=== PATIENT | male | born 1935 | race American Indian/Alaskan Native ===

== ENCOUNTER 2017-05-25 13:32 | Inpatient (IN) | payer MEDICARE ==
[2017-05-25 13:45] VITALS: BMI 32.5
[2017-05-25 14:37] LABS: BASO # 0.04 K/mm3 (0.0-2.0); BASO % 0.6 % (0.0-3.0); EOS # 0.5 (0.0-0.7); EOS % 7.9 % (1.5-5.0); GRAN # 4.73 (1.4-6.5); GRAN % 69.4 % (50.0-68.0); HEMATOCRIT 26.2 % (42.0-52.0); LYMPH % 15.1 % (22.0-35.0); MEAN CELL VOLUME 88.5 fl (80.0-105.0); MEAN CORPUSCULAR HEMOGLOBIN 27.7 pg (25.0-35.0); MEAN CORPUSCULAR HGB CONC 31.3 g/dl (31.0-37.0); MEAN PLATELET VOLUME 8.2 fl (7.0-11.0); MONO # 0.5 (0.1-0.6); RED CELL DISTRIBUTION WIDTH 14.4 % (11.5-14.5); WHITE BLOOD COUNT 6.8 10^3/ul (4.5-11.0)
[2017-05-25 15:12] LABS: ALKALINE PHOSPHATASE 65 U/L (38-126); ALT/SGPT 33 U/L (7-56); AST/SGOT 25 U/L (17-59); BILIRUBIN,TOTAL 0.5 mg/dL (0.2-1.3); BLOOD UREA NITROGEN 18 mg/dL (7-21); CALCIUM 9.1 mg/dL (8.4-10.5); CARBON DIOXIDE 24 mmol/L (21-33); CHLORIDE 107 mmol/L (98-107); GFR AFRICAN-AMERICAN > 60; GLUCOSE,RANDOM 129 mg/dL (70-110); MAGNESIUM 2.3 mg/dL (1.7-2.2); POTASSIUM 3.7 mmol/L (3.6-5.0); SODIUM 142 mmol/L (132-148); TOTAL PROTEIN 7.6 g/dL (5.8-8.3)
--- NOTE | 2017-05-25 15:14 | CT ---
PROCEDURE: CT HEAD WITHOUT CONTRAST. HISTORY: r/o ICH COMPARISON: 01/21/2015 TECHNIQUE: Axial computed tomography images were obtained through the head/brain without intravenous contrast. Radiation dose: Total exam DLP = 825 mGy-cm. This CT exam was performed using one or more of the following dose reduction techniques: Automated exposure control, adjustment of the mA and/or kV according to patient size, and/or use of iterative reconstruction technique. FINDINGS: HEMORRHAGE: No intracranial hemorrhage. BRAIN: No mass effect or edema. Chronic microvascular changes are seen in the periventricular white matter. There is a more well-defined area of chronic encephalomalacia in left parietal white matter. VENTRICLES: Unremarkable. No hydrocephalus. CALVARIUM: Unremarkable. PARANASAL SINUSES: Unremarkable as visualized. No significant inflammatory changes. MASTOID AIR CELLS: Unremarkable as visualized. No inflammatory changes. OTHER FINDINGS: None. IMPRESSION: Chronic encephalomalacia. No acute findings
[2017-05-25 15:21] LABS: TROPONIN I < 0.01 ng/mL
--- NOTE | 2017-05-25 15:35 | RAD ---
HISTORY: r/o infiltrate COMPARISON: 01/21/2015 FINDINGS: LUNGS: No active pulmonary disease. PLEURA: No significant pleural effusion identified, no pneumothorax apparent. CARDIOVASCULAR: Normal. OSSEOUS STRUCTURES: No significant abnormalities. VISUALIZED UPPER ABDOMEN: Normal. OTHER FINDINGS: None. IMPRESSION: No active disease.
--- NOTE | 2017-05-25 16:29 | ED PDOC ---
Arrival/HPI - General Chief Complaint: Weakness/Neurological Deficit Time Seen by Provider: 05/25/17 13:41 Historian: Patient - History of Present Illness Narrative History of Present Illness (Text): 05/25/17 13:46 A 81 year old male, whose past medical history includes advanced Alzheimer's/ dementia, is accompanied by son and , and presents to the emergency department complaining of near syncopal episode. Per , was walking home and suddenly became weak and nearly passed out. Per family, patient has been eating regularly. Patient denies any pain, LOC, fever, cough, dysuria, hematuria, bloody stool, or any other complaints. Also, patient has not had cardiac workup in approximately 2 years. No PMD Past Medical History - Provider Review Nursing Documentation Reviewed: Yes - Infectious Disease Hx of Infectious Diseases: None - Tetanus Immunization Tetanus Immunization: Unknown - Cardiac Hx Cardiac Disorders: Yes Hx Hypertension: Yes - Pulmonary Hx Respiratory Disorders: No - Neurological Hx Neurological Disorder: Yes Hx Alzheimer's Disease: Yes Hx Dementia: Yes - HEENT Hx HEENT Disorder: No - Renal Hx Renal Disorder: No - Endocrine/Metabolic Hx Endocrine Disorders: No - Hematological/Oncological Hx Blood Disorders: No - Integumentary Hx Dermatological Disorder: No - Musculoskeletal/Rheumatological Hx Musculoskeletal Disorders: No Hx Falls: No - Gastrointestinal Hx Gastrointestinal Disorders: No - Genitourinary/Gynecological Hx Genitourinary Disorders: No - Psychiatric Hx Psychophysiologic Disorder: Yes Hx Depression: Yes Hx Substance Use: No - Past Surgical History Past Surgical History: Unable to Obtain - Surgical History Hx Orthopedic Surgery: Yes (rt knee) - Anesthesia Hx Anesthesia: Yes Hx Anesthesia Reactions: No Hx Malignant Hyperthermia: No - Suicidal Assessment Feels Threatened In Home Enviroment: No Family/Social History - Physician Review Nursing Documentation Reviewed: Yes Family/Social History: No Known Family HX Smoking Status: Never Smoked Hx Alcohol Use: No Hx Substance Use: No Hx Substance Use Treatment: No Allergies/Home Meds Allergies/Adverse Reactions: Allergies No Known Allergies Allergy (Verified 05/09/16 11:28) Home Medications: Home Meds Medication Instructions Recorded Confirmed Donepezil [Aricept] 10 mg PO HS 06/14/13 05/25/17 Primidone 50 mg PO BID 06/14/13 05/25/17 Furosemide [Lasix] 1 tab PO DAILY 05/25/17 05/25/17 Lisinopril [Zestril] 1 tab PO DAILY 05/25/17 05/25/17 amLODIPine [Norvasc] 1 tab PO DAILY 05/25/17 05/25/17 traZODone [Desyrel] 1 tab PO HS 05/25/17 05/25/17 Review of Systems - Physician Review All systems were reviewed & negative as marked: Yes - Review of Systems Constitutional: absent: Fevers, Other (patient denies of any pain) Respiratory: absent: Cough Cardiovascular: absent: Syncope (near-syncopal episode) Gastrointestinal: absent: Stool Changes (no bloody stool) Genitourinary Male: absent: Dysuria, Hematuria Neurological: absent: Other (no LOC) Physical Exam Vital Signs Reviewed: Yes Vital Signs Temp Pulse Resp BP Pulse Ox 05/25/17 21:06 67 18 122/54 L 98 05/25/17 19:55 66 18 105/51 L 100 05/25/17 16:59 61 18 132/62 05/25/17 16:49 61 18 132/62 98 05/25/17 15:07 64 18 125/59 L 100 05/25/17 13:46 97.8 F 67 18 127/56 L 98 Temperature: Afebrile Blood Pressure: Normal Pulse: Regular Respiratory Rate: Normal Appearance: Positive for: Well-Appearing Pain Distress: None Mental Status: Positive for: Alert and Oriented X 3 Finger Stick Blood Glucose: 141 - Systems Exam Head: Present: Atraumatic, Normocephalic Pupils: Present: PERRL Extroacular Muscles: Present: EOMI Conjunctiva: Present: Normal Mouth: Present: Moist Mucous Membranes Neck: Present: Normal Range of Motion Respiratory/Chest: Present: Clear to Auscultation, Good Air Exchange. No: Respiratory Distress, Accessory Muscle Use Cardiovascular: Present: Regular Rate and Rhythm, Normal S1, S2. No: Murmurs Abdomen: Present: Normal Bowel Sounds. No: Tenderness, Distention, Peritoneal Signs Back: Present: Normal Inspection Upper Extremity: Present: Normal Inspection. No: Cyanosis, Edema Lower Extremity: Present: Normal Inspection. No: Edema Neurological: Present: GCS=15, CN II-XII Intact, Speech Normal Skin: Present: Warm, Dry, Normal Color. No: Rashes Psychiatric: Present: Alert, Oriented x 3, Normal Insight, Normal Concentration Medical Decision Making ED Course and Treatment: 05/25/17 13:51 Impression: 81 year old male with near-syncopal episode. No acute findings on physical exam. Plan: -- EKG -- Head CT -- Chest X-ray -- Labs -- Urine Culture -- Urinalysis -- Reassess and disposition Prior Visits: Notes and results from previous visits were reviewed. Patient was last seen in the emergency department on 05/09/2016 for diarrhea. Patient was d/c home. Progress Notes: EKG: Ordered, reviewed, and independently interpreted the EKG. Rate : 64 BPM Rhythm : NSR Interpretation : No ST-segment elevations or depressions, no T-wave inversions, normal intervals. Comparison : No previous EKG for comparison. 05/25/2017 15:[address] IMPRESSION: Chronic encephalomalacia. No acute findings. Dictator: José Miguel Woodruff MD 05/25/2017 15:33 Chest X-ray IMPRESSION: No active disease. Dictator: José Miguel Woodruff MD - Lab Interpretations Lab Results: 05/25/17 14:20 05/25/17 14:20 Lab Results 05/25/17 14:20: Sodium 142, Potassium 3.7, Chloride 107, Carbon Dioxide 24, Anion Gap 14, BUN 18, Creatinine 1.1, Est GFR ( Amer) > 60, Est GFR (Non- Af Amer) > 60, Random Glucose 129 H, Calcium 9.1, Magnesium 2.3 H, Total Bilirubin 0.5, AST 25, ALT 33, Alkaline Phosphatase 65, Lactate Dehydrogenase 615, Total Creatine Kinase 151, Troponin I < 0.01, NT-Pro-B Natriuret Pep 245, Total Protein 7.6, Albumin 3.8, Globulin 3.7, Albumin/Globulin Ratio 1.0 L 05/25/17 14:20: WBC 6.8 D, RBC 2.96 L, Hgb 8.2 L, Hct 26.2 L, MCV 88.5, MCH 27.7, MCHC 31.3, RDW 14.4, Plt Count 370, MPV 8.2, Gran % 69.4 H, Lymph % (Auto ) 15.1 L, Early % (Auto) 7.0 H, Eos % (Auto) 7.9 H, Baso % (Auto) 0.6, Gran # 4.73, Lymph # 1.0 L, Early # 0.5, Eos # 0.5, Baso # 0.04 I have reviewed the lab results: Yes - RAD Interpretation Radiology Orders: 05/25/17 13:51 CHEST PORTABLE [RAD] Stat 05/25/17 13:52 HEAD W/O CONTRAST [CT] Stat - Medication Orders Current Medication Orders: Amlodipine Besylate (Norvasc) 5 mg PO DAILY [facility] Donepezil HCl (Aricept) 10 mg PO HS [facility] Enoxaparin Sodium (Lovenox) 30 mg SC DAILY [facility] PRN Reason: Protocol Furosemide (Lasix) 20 mg PO DAILY [facility] Lisinopril (Zestril) 40 mg PO DAILY [facility] Primidone (Mysoline) 50 mg PO BID [facility] Trazodone HCl (Desyrel) 50 mg PO HS [facility] - Scribe Statement The provider has reviewed the documentation as recorded by the Rica Trevino Provider Scribe Attestation: All medical record entries made by the Srinivasaibdimple were at my direction and personally dictated by me. I have reviewed the chart and agree that the record accurately reflects my personal performance of the history, physical exam, medical decision making, and the department course for this patient. I have also personally directed, reviewed, and agree with the discharge instructions and disposition. Disposition/Present on Arrival - Present on Arrival Any Indicators Present on Arrival: No History of DVT/PE: No History of Uncontrolled Diabetes: No Urinary Catheter: No History of Decub. Ulcer: No History Surgical Site Infection Following: None - Disposition Have Diagnosis and Disposition been Completed?: Yes Diagnosis: Near syncope, Anemia Disposition: HOSPITALIZED Disposition Time: 15:20 Patient Plan: Admission, Telemetry Condition: FAIR
[2017-05-25 21:26] LABS: IRON 14 ug/dL (45-180)
[2017-05-26 02:05] LABS: PH,URINE 6.5 (4.7-8.0); URINE BILIRUBIN NEGATIVE (NEGATIVE); URINE BLOOD NEGATIVE (NEGATIVE); URINE GLUCOSE (UA) NEGATIVE (NEGATIVE); URINE KETONE NEGATIVE (NEGATIVE); URINE LEUKOCYTE ESTERASE NEGATIVE Leu/uL (NEGATIVE); URINE PROTEIN NEGATIVE mg/dL (<30 mg/dL); URINE UROBILINOGEN 0.2 E.U./dL (<1 E.U./dL)
[2017-05-26 02:12] LABS: URINE APPEARANCE CLEAR (CLEAR); URINE COLOR YELLOW (YELLOW)
[2017-05-26 05:18] LABS: MEAN CELL VOLUME 88.6 fl (80.0-105.0); MEAN CORPUSCULAR HEMOGLOBIN 27.7 pg (25.0-35.0); MEAN CORPUSCULAR HGB CONC 31.2 g/dl (31.0-37.0); MEAN PLATELET VOLUME 8.4 fl (7.0-11.0); RED CELL DISTRIBUTION WIDTH 14.6 % (11.5-14.5); WHITE BLOOD COUNT 8.4 10^3/ul (4.5-11.0)
[2017-05-26 05:36] LABS: HEMATOCRIT 23.4 % (42.0-52.0)
[2017-05-26 05:47] LABS: BLOOD UREA NITROGEN 20 mg/dL (7-21); CALCIUM 8.7 mg/dL (8.4-10.5); CARBON DIOXIDE 26 mmol/L (21-33); CHLORIDE 110 mmol/L (98-107); GFR AFRICAN-AMERICAN > 60; GLUCOSE,RANDOM 88 mg/dL (70-110); POTASSIUM 3.7 mmol/L (3.6-5.0); SODIUM 143 mmol/L (132-148)
--- NOTE | 2017-05-26 09:52 | CARD ---
APPROVED REPORT EKG Measurement Heart [id number] <Conclusion> Normal sinus rhythm Moderate voltage criteria for LVH, may be normal variant No change
[2017-05-26] MEDS ORDERED: Enoxaparin 30 mg Syringe SC SCH (10:00)
--- NOTE | 2017-05-26 13:08 | CP.PCM.CON ---
<Lenora Ventura - Last Filed: 05/26/17 18:04> History of Present Illness - History of Present Illness History of Present Illness: PGY-2 Neurology consult note for Dr. Nur's service 81 yo male with PMH of alzheimer;s dementia presented to ED for near syncopal episode. Patient has h/o dementia, he is not oriented, unable to answer questions. History taken from ED note. Patient was brought in by family after near syncopal episode. Patient was walking when suddenly he became weak and nearly passed out. Patient denies LOC, fever, chills, cough, chest pain, headache, dizziness, sob. PMH: alzheimer's, HTN, depression PSH: orthopedic surgery of right knee allergy: NKDA home meds: trazodone, lisinopril, lasix, aricept, norvasc Review of Systems - Review of Systems Systems not reviewed;Unavailable: Dementia All systems: reviewed and no additional remarkable complaints except (as states in HPI) Past Patient History - Infectious Disease Hx of Infectious Diseases: None - Tetanus Immunizations Tetanus Immunization: Unknown - Past Social History Smoking Status: Never Smoked - CARDIAC Hx Cardiac Disorders: Yes Hx Hypertension: Yes - PULMONARY Hx Respiratory Disorders: No - NEUROLOGICAL Hx Neurological Disorder: Yes Hx Alzheimer's Disease: Yes Hx Dementia: Yes - HEENT Hx HEENT Problems: No - RENAL Hx Chronic Kidney Disease: No - ENDOCRINE/METABOLIC Hx Endocrine Disorders: No - HEMATOLOGICAL/ONCOLOGICAL Hx Blood Disorders: No - INTEGUMENTARY Hx Dermatological Problems: No - MUSCULOSKELETAL/RHEUMATOLOGICAL Hx Musculoskeletal Disorders: No Hx Falls: No - GASTROINTESTINAL Hx Gastrointestinal Disorders: No - GENITOURINARY/GYNECOLOGICAL Hx Genitourinary Disorders: No - PSYCHIATRIC Hx Psychophysiologic Disorder: Yes Hx Depression: Yes Hx Substance Use: No - SURGICAL HISTORY Hx Orthopedic Surgery: Yes (rt knee) - ANESTHESIA Hx Anesthesia: Yes Hx Anesthesia Reactions: No Hx Malignant Hyperthermia: No Meds Allergies/Adverse Reactions: Allergies Allergy/AdvReac Type Severity Reaction Status Date / Time No Known Allergies Allergy Verified 05/09/16 11:28 - Medications Medications: Current Medications Amlodipine Besylate (Norvasc) 5 mg PO DAILY HIEU Donepezil HCl (Aricept) 10 mg PO HS [facility]IEU Last Admin: 05/26/17 00:33 Dose: 10 mg Lisinopril (Zestril) 40 mg PO DAILY [facility]IEU Primidone (Mysoline) 50 mg PO BID [facility]U Trazodone HCl (Desyrel) 50 mg PO HS [facility] Last Admin: 05/26/17 00:33 Dose: 50 mg Physical Exam - Constitutional Appears: No Acute Distress - Head Exam Head Exam: ATRAUMATIC, NORMAL INSPECTION, NORMOCEPHALIC - Eye Exam Eye Exam: EOMI, Normal appearance - ENT Exam ENT Exam: Mucous Membranes Moist - Respiratory Exam Respiratory Exam: Clear to Auscultation Bilateral, NORMAL BREATHING PATTERN. absent: Rhonchi, Wheezes, Respiratory Distress - Cardiovascular Exam Cardiovascular Exam: REGULAR RHYTHM, +S1, +S2. absent: Tachycardia, Systolic Murmur - GI/Abdominal Exam GI & Abdominal Exam: Normal Bowel Sounds, Soft. absent: Tenderness - Extremities Exam Extremities exam: Positive for: normal inspection. Negative for: pedal edema, tenderness - Neurological Exam Neurological exam: Alert, CN II-XII Intact - Expanded Neurological Exam Expanded Neurological exam: Expressive Aphasia Patient oriented to: person Speech: Fluid Speech Cranial nerves: EOM's Intact: Normal, Tongue Deviation: Normal Cerebellar Function: Finger to Nose: Normal Neuro motor strength exam: Left Upper Extremity: 5, Right Upper Extremity: 5, Left Lower Extremity: 5, Right Lower Extremity: 5 - Skin Skin Exam: Dry, Intact, Normal Color, Warm Results - Vital Signs Recent Vital Signs: Last Vital Signs Temp 98.4 F 05/26/17 06:00 Pulse 71 05/26/17 12:23 Resp 18 05/26/17 12:23 BP 133/61 05/26/17 12:23 Pulse Ox 100 05/26/17 12:23 - Labs Result Diagrams: 05/26/17 05:00 05/26/17 05:00 Labs: Laboratory Results - last 24 hr 05/25/17 05/25/17 05/25/17 17:00 20:45 20:45 WBC RBC Hgb Hct MCV MCH MCHC RDW Plt Count MPV Sodium Potassium Chloride Carbon Dioxide Anion Gap BUN Creatinine Est GFR ( Amer) Est GFR (Non-Af Amer) POC Glucose (mg/dL) Random Glucose Hemoglobin A1c Calcium Iron 14 L TIBC 415 % Saturation 3 L Triglycerides 75 Cholesterol 147 LDL Cholesterol Direct 76 HDL Cholesterol 52 TSH 3rd Generation Urine Color Urine Appearance Urine pH Ur Specific [place] Urine Protein Urine Glucose (UA) Urine Ketones Urine Blood Urine Nitrate Urine Bilirubin Urine Urobilinogen Ur Leukocyte Esterase Blood Type O NEGATIVE Blood Type Confirm Antibody Screen Negative Crossmatch See Detail BBK History Checked No verified bt 05/25/17 05/26/17 05/26/17 20:45 00:23 01:56 WBC RBC Hgb Hct MCV MCH MCHC RDW Plt Count MPV Sodium Potassium Chloride Carbon Dioxide Anion Gap BUN Creatinine Est GFR ( Amer) Est GFR (Non-Af Amer) POC Glucose (mg/dL) Random Glucose Hemoglobin A1c 4.8 Calcium Iron TIBC % Saturation Triglycerides Cholesterol LDL Cholesterol Direct HDL Cholesterol TSH 3rd Generation Urine Color Yellow Urine Appearance Clear Urine pH 6.5 Ur Specific [place] 1.015 Urine Protein Negative Urine Glucose (UA) Negative Urine Ketones Negative Urine Blood Negative Urine Nitrate Negative Urine Bilirubin Negative Urine Urobilinogen 0.2 Ur Leukocyte Esterase Negative Blood Type Blood Type Confirm O NEGATIVE Antibody Screen Crossmatch BBK History Checked 05/26/17 05/26/17 05/26/17 05:00 05:00 10:07 WBC 8.4 D RBC 2.64 L Hgb 7.3 L Hct 23.4 L MCV 88.6 MCH 27.7 MCHC 31.2 RDW 14.6 H Plt Count 393 MPV 8.4 Sodium 143 Potassium 3.7 Chloride 110 H Carbon Dioxide 26 Anion Gap 10 BUN 20 Creatinine 1.1 Est GFR ( Amer) > 60 Est GFR (Non-Af Amer) > 60 POC Glucose (mg/dL) Random Glucose 88 Hemoglobin A1c Calcium 8.7 Iron TIBC % Saturation Triglycerides Cholesterol LDL Cholesterol Direct HDL Cholesterol TSH 3rd Generation 2.83 Urine Color Urine Appearance Urine pH Ur Specific [place] Urine Protein Urine Glucose (UA) Urine Ketones Urine Blood Urine Nitrate Urine Bilirubin Urine Urobilinogen Ur Leukocyte Esterase Blood Type Blood Type Confirm Antibody Screen Crossmatch BBK History Checked 05/26/17 10:10 WBC RBC Hgb Hct MCV MCH MCHC RDW Plt Count MPV Sodium Potassium Chloride Carbon Dioxide Anion Gap BUN Creatinine Est GFR ( Amer) Est GFR (Non-Af Amer) POC Glucose (mg/dL) 101 Random Glucose Hemoglobin A1c Calcium Iron TIBC % Saturation Triglycerides Cholesterol LDL Cholesterol Direct HDL Cholesterol TSH 3rd Generation Urine Color Urine Appearance Urine pH Ur Specific [place] Urine Protein Urine Glucose (UA) Urine Ketones Urine Blood Urine Nitrate Urine Bilirubin Urine Urobilinogen Ur Leukocyte Esterase Blood Type Blood Type Confirm Antibody Screen Crossmatch BBK History Checked Assessment & Plan - Assessment and Plan (Free Text) Assessment: 81 yo male with PMH of alzheimer;s dementia presented to ED for near syncopal episode most likely due to symptomatic anemia and general deconditioning 1. near syncope, weakness 2. anemia, severe 3. h/o dementia - head CT negative for acute changes, chronic encephalomalacia - anemia work up pending, including folate, lipid panel, vitamin B12 - carotid and vertebral US pending - EEG pending - orthostatics - PT/OT - consider subacute rehab case reviewed and discussed with attending <Santos Nur - Last Filed: 05/26/17 22:03> Meds - Medications Medications: Current Medications Amlodipine Besylate (Norvasc) 5 mg PO DAILY [facility] Last Admin: 05/26/17 10:21 Dose: 5 mg Donepezil HCl (Aricept) 10 mg PO HS [facility] Last Admin: 05/26/17 00:33 Dose: 10 mg Lisinopril (Zestril) 40 mg PO DAILY [facility] Last Admin: 05/26/17 10:21 Dose: 40 mg Primidone (Mysoline) 50 mg PO BID [facility] Last Admin: 05/26/17 18:32 Dose: 50 mg Trazodone HCl (Desyrel) 50 mg PO HS [facility] Last Admin: 05/26/17 00:33 Dose: 50 mg Results - Vital Signs Recent Vital Signs: Last Vital Signs Temp 98.1 F 05/26/17 21:37 Pulse 75 05/26/17 21:37 Resp 18 05/26/17 21:37 BP 145/78 05/26/17 21:37 Pulse Ox 96 05/26/17 18:00 - Labs Result Diagrams: 05/26/17 05:00 05/26/17 05:00 Labs: Laboratory Results - last 24 hr 05/25/17 05/25/17 05/25/17 17:00 20:45 20:45 WBC RBC Hgb Hct MCV MCH MCHC RDW Plt Count MPV Sodium Potassium Chloride Carbon Dioxide Anion Gap BUN Creatinine Est GFR ( Amer) Est GFR (Non-Af Amer) POC Glucose (mg/dL) Random Glucose Hemoglobin A1c 4.8 Calcium Vitamin B12 556 Folate 18.7 TSH 3rd Generation Urine Color Urine Appearance Urine pH Ur Specific [place] Urine Protein Urine Glucose (UA) Urine Ketones Urine Blood Urine Nitrate Urine Bilirubin Urine Urobilinogen Ur Leukocyte Esterase Blood Type O NEGATIVE Blood Type Confirm Antibody Screen Negative Crossmatch See Detail BBK History Checked No verified bt 05/26/17 05/26/17 05/26/17 00:23 01:56 05:00 WBC 8.4 D RBC 2.64 L Hgb 7.3 L Hct 23.4 L MCV 88.6 MCH 27.7 MCHC 31.2 RDW 14.6 H Plt Count 393 MPV 8.4 Sodium Potassium Chloride Carbon Dioxide Anion Gap BUN Creatinine Est GFR ( Amer) Est GFR (Non-Af Amer) POC Glucose (mg/dL) Random Glucose Hemoglobin A1c Calcium Vitamin B12 Folate TSH 3rd Generation Urine Color Yellow Urine Appearance Clear Urine pH 6.5 Ur Specific [place] 1.015 Urine Protein Negative Urine Glucose (UA) Negative Urine Ketones Negative Urine Blood Negative Urine Nitrate Negative Urine Bilirubin Negative Urine Urobilinogen 0.2 Ur Leukocyte Esterase Negative Blood Type Blood Type Confirm O NEGATIVE Antibody Screen Crossmatch BBK History Checked 05/26/17 05/26/17 05/26/17 05:00 10:07 10:10 WBC RBC Hgb Hct MCV MCH MCHC RDW Plt Count MPV Sodium 143 Potassium 3.7 Chloride 110 H Carbon Dioxide 26 Anion Gap 10 BUN 20 Creatinine 1.1 Est GFR ( Amer) > 60 Est GFR (Non-Af Amer) > 60 POC Glucose (mg/dL) 101 Random Glucose 88 Hemoglobin A1c Calcium 8.7 Vitamin B12 Folate TSH 3rd Generation 2.83 Urine Color Urine Appearance Urine pH Ur Specific [place] Urine Protein Urine Glucose (UA) Urine Ketones Urine Blood Urine Nitrate Urine Bilirubin Urine Urobilinogen Ur Leukocyte Esterase Blood Type Blood Type Confirm Antibody Screen Crossmatch BBK History Checked Attending/Attestation - Attestation I have personally seen and examined this patient.: Yes I have fully participated in the care of the patient.: Yes I have reviewed all pertinent clinical information: Yes
[2017-05-26 13:10] LABS: FOLATE 18.7 ng/mL
--- NOTE | 2017-05-26 18:55 | HP ---
DATE: SUBJECTIVE: An 81-year-old black male with a long history of dementia and hypertension. The patient was with his family at home when he had a weak spell, able to sit on the couch without loss of consciousness, but had a staring episode post falling into the couch. EMS was called. The patient was taken to the emergency room at [facility]. Laboratory data is found a hemoglobin of 8.2, which dropped to 7.3 the following day. The patient is type and cross and is being transfused and admitted. The patient's family denies any episodes of seizure activity. Denies any history of passing out in the past. Denies any shortness of breath, nausea, vomiting, palpitations, or chest pain. Denies any loss of strength in the upper and lower extremities that was focal. The following morning, the patient was seen in the ER. He is awake and alert, but oriented only to person, not to time or place. The patient has no focal neurological findings. He is moving all the extremities and following commands. He has no facial asymmetry and he has normal strength in the upper and lower extremities. Babinski's are downgoing bilaterally. His sclerae are clear. Conjunctivae are pale. The patient has a low MCV and low iron levels. The patient has no history of any GI bleeding in the past. The patient's plan will be to check stool for occult blood, GI consult, transfuse, and continue evaluation for near syncopal episode. Kenny Joseph MD
--- NOTE | 2017-05-26 22:01 | CON ---
DATE: HISTORY OF PRESENT ILLNESS: This is an 81-year-old male with past medical history of dementia and came to the hospital because the patient had a near syncopal episode. As per , the patient suddenly became weak, nearly passed out, and denies any loss of consciousness. No tongue bite. No urinary incontinence. HOME MEDICATIONS: Lasix, Zestril, Norvasc, Desyrel and Aricept. REVIEW OF SYSTEMS: A 10-point review of system was negative. PHYSICAL EXAMINATION: VITAL SIGNS: Blood pressure 127/56. HEENT: Normocephalic, atraumatic. NECK: Supple. NEUROLOGIC: Alert, awake, and oriented x3. No aphasia. Cranial nerves II to XII were tested. Pupils reactive. EOM intact. Visual robin full. No facial asymmetry. Tongue midline. Motor examination, moves all the extremities equally. Tone normal. Deep tendon reflexes 1+. Both plantars downgoing. Sensory appears intact. Cerebellar and gait deferred. IMPRESSION: An 81-year-old male with past medical history of dementia, had near syncopal episode, came to hospital. CAT scan of the head was done, which was reported negative. LABORATORY DATA: WBC 6.8, hemoglobin 8.2, hematocrit 26.2, platelet 370. Sodium 142, potassium 3.7, chloride 107, CO2 of 24, glucose 129, BUN 18, creatinine 1.1. PLAN: The patient also had anemia and workup in progress. We will follow up. We will do EEG. Royal Nur MD
--- NOTE | 2017-05-27 03:21 | CON ---
DATE: 05/26/2017 HISTORY OF PRESENT ILLNESS: This patient was seen and evaluated earlier today. Discussed with the nursing staff. This is an 81-year-old patient with past medical history of Alzheimer dementia, was brought to the emergency room for complaint of near syncopal episode. The patient had this episode acutely. The patient was found to have very low hemoglobin of 7.3. GI consult was requested to evaluate. The patient is a poor historian. PAST MEDICAL HISTORY: Other past medical history is significant for dementia, hypertension, dyslipidemia. This patient's history has been limited. PAST SURGICAL HISTORY: Significant for right knee surgery. ALLERGIES: NO KNOWN DRUG ALLERGIES. SOCIAL HISTORY: No smoking or alcohol. REVIEW OF SYSTEMS: Positive as above, limited. PHYSICAL EXAMINATION: GENERAL: The patient is lying on the bed, not in acute distress. VITAL SIGNS: Temperature is 98.1, pulse 75, blood pressure is 145/78, respirations 18. HEENT: Atraumatic, anicteric. NECK: Supple. HEART: S1 and S2 heard. LUNGS: Bilateral air entry present. ABDOMEN: Soft. There is no mass, no tenderness. EXTREMITIES: No edema. No cyanosis. NEUROLOGIC: The patient is alert, not oriented. LABORATORY DATA: Hemoglobin 11.3, hematocrit 23.4. WBC is 6.4, platelets 393. IMPRESSION: 1. This 81-year-old patient is admitted with near syncopal episode found to have a very low hemoglobin of 7.93. No witnessed bleeding. Other past medical history is significant. 2. Rule out iron deficiency anemia. The patient's MCV is normal. B12 level is trending. I would request serum. 3. Other comorbidities include hypertension, dementia, cardiac dysrhythmia, anemia. Thank you very much for allowing us to participate in the care of the patient. Continue to closely follow up his care and suggest further management based on the clinical course. Pamella Oneill MD
[2017-05-27 10:41] LABS: BASO # 0.05 K/mm3 (0.0-2.0); BASO % 0.5 % (0.0-3.0); EOS # 0.6 (0.0-0.7); EOS % 5.8 % (1.5-5.0); GRAN # 6.64 (1.4-6.5); GRAN % 70.3 % (50.0-68.0); LYMPH # 1.3 (1.2-3.4); MEAN CELL VOLUME 87.5 fl (80.0-105.0); MEAN CORPUSCULAR HEMOGLOBIN 27.8 pg (25.0-35.0); MEAN CORPUSCULAR HGB CONC 31.8 g/dl (31.0-37.0); MEAN PLATELET VOLUME 8.1 fl (7.0-11.0); MONO # 0.9 (0.1-0.6); MONO % 9.4 % (1.0-6.0); RED CELL DISTRIBUTION WIDTH 14.7 % (11.5-14.5); WHITE BLOOD COUNT 9.5 10^3/ul (4.5-11.0)
--- NOTE | 2017-05-27 13:41 | CP.PCM.PN ---
<Lenora Ventura - Last Filed: 05/27/17 19:48> Subjective - Date & Time of Evaluation Date of Evaluation: 05/27/17 Time of Evaluation: 09:00 - Subjective Subjective: PGY-2 Neurology progress note for Dr. Nur service Patient seen and examined at bedside. No acute distress. Patient is sleeping comfortably. Does not report fever, chills, chest pain, headache, dizziness, focal neurological weakness. Objective - Vital Signs/Intake and Output Vital Signs (last 24 hours): Temp Pulse Resp BP Pulse Ox 99.1 F 69 20 145/65 96 05/27/17 06:00 05/27/17 10:55 05/27/17 06:00 05/27/17 10:55 05/27/17 06:00 Intake and Output: 05/27/17 05/27/17 06:59 18:59 Intake Total 445 Balance 445 - Medications Medications: Current Medications Amlodipine Besylate (Norvasc) 5 mg PO DAILY [facility] Last Admin: 05/27/17 10:55 Dose: 5 mg Donepezil HCl (Aricept) [address] [facility] Last Admin: 05/26/17 23:04 Dose: 10 mg Lisinopril (Zestril) 40 mg PO DAILY [facility] Last Admin: 05/27/17 10:55 Dose: 40 mg Pantoprazole Sodium (Protonix Inj) 40 mg IVP DAILY [facility] Last Admin: 05/27/17 11:36 Dose: 40 mg Primidone (Mysoline) 50 mg PO BID [facility] Last Admin: 05/27/17 10:55 Dose: 50 mg Trazodone HCl (Desyrel) [address] [facility] Last Admin: 05/26/17 23:04 Dose: 50 mg - Labs Labs: 05/27/17 10:30 05/26/17 05:00 - Constitutional Appears: Well, No Acute Distress - Head Exam Head Exam: ATRAUMATIC, NORMAL INSPECTION, NORMOCEPHALIC - Eye Exam Eye Exam: EOMI, Normal appearance - Respiratory Exam Respiratory Exam: Clear to Ausculation Bilateral, NORMAL BREATHING PATTERN. absent: Respiratory Distress - Cardiovascular Exam Cardiovascular Exam: REGULAR RHYTHM - Neurological Exam Neurological Exam: Alert, Awake, CN II-XII Intact. absent: Oriented x3 Neuro motor strength exam: Left Upper Extremity: 5, Right Upper Extremity: 5, Left Lower Extremity: 5, Right Lower Extremity: 5 - Skin Skin Exam: Dry, Intact, Normal Color, Warm Assessment and Plan - Assessment and Plan (Free Text) Assessment: 81 yo male with PMH of alzheimer's dementia presented to ED for near syncopal episode most likely due to symptomatic anemia and general deconditioning 1. near syncope, weakness 2. anemia, severe 3. h/o dementia - head CT negative for acute changes, chronic encephalomalacia - Hgb improved, anemia work up pending, iron levels low, B12 and folate within normal limits, pending GI work up - carotid and vertebral US taken, official read pending - EEG taken, showed mild cerebral dysfunction, no signs of seizure activity - orthostatics - PT/OT - consider subacute rehab Thank you for the consult, please reconsult if needed case reviewed and discussed with attending <Santos Nur - Last Filed: 05/28/17 10:35> Objective - Vital Signs/Intake and Output Vital Signs (last 24 hours): Temp Pulse Resp BP Pulse Ox 98.4 F 64 18 137/59 L 93 L 05/28/17 00:01 05/28/17 09:56 05/28/17 05:36 05/28/17 09:56 05/28/17 05:36 Intake and Output: 05/28/17 05/28/17 06:59 18:59 Intake Total 0 Output Total 1 Balance -1 - Medications Medications: Current Medications Amlodipine Besylate (Norvasc) 5 mg PO DAILY [facility] Last Admin: 05/28/17 09:56 Dose: 5 mg Donepezil HCl (Aricept) 10 mg PO HS [facility] Last Admin: 05/27/17 22:00 Dose: 10 mg Lisinopril (Zestril) 40 mg PO DAILY [facility] Last Admin: 05/28/17 09:56 Dose: 40 mg Pantoprazole Sodium (Protonix Inj) 40 mg IVP DAILY [facility] Last Admin: 05/28/17 10:04 Dose: Not Given Primidone (Mysoline) 50 mg PO BID [facility] Last Admin: 05/28/17 09:56 Dose: 50 mg Trazodone HCl (Desyrel) 50 mg PO HS [facility] Last Admin: 05/27/17 22:00 Dose: 50 mg - Labs Labs: 05/27/17 10:30 05/26/17 05:00 Attending/Attestation - Attestation I have personally seen and examined this patient.: Yes I have fully participated in the care of the patient.: Yes I have reviewed all pertinent clinical information, including history, physical exam and plan: Yes
[2017-05-27] MEDS ORDERED: Etomidate 20 mg/10ml Inj IV ONE (15:11)
[2017-05-27] MEDS ORDERED: Sodium Chloride 0.9% 1,000 ML IV SCH (15:30)
--- NOTE | 2017-05-27 18:57 | US ---
PROCEDURE: Bilateral carotid artery duplex ultrasound HISTORY: Carotid stenosis TIA PHYSICIAN(S): Goyo Jesus MD. TECHNIQUE: Duplex sonography and color-flow Doppler were used to evaluate the carotid bifurcations and limited segments of the vertebral arteries bilaterally. FINDINGS: There is mild to moderate smooth echogenic plaque noted at the carotid bifurcations bilaterally. The peak systolic velocity in the proximal right internal carotid artery is 104 cm/sec. This corresponds to a 20 to 39% proximal right ICA stenosis. Mildly elevated systolic velocities are noted in the proximal right external carotid artery. There is antegrade flow in the right vertebral artery. The peak systolic velocity in the proximal left internal carotid artery is 86 cm/sec. This corresponds to a 20 to 39% proximal left ICA stenosis. Mildly elevated systolic velocities are noted in the proximal left external carotid artery. There is antegrade flow in the dominant left vertebral artery. IMPRESSION: 1. Bilateral 20-39% proximal ICA stenoses. 2. Antegrade flow in both vertebral arteries.
--- NOTE | 2017-05-27 22:32 | PN ---
DATE: SUBJECTIVE: The patient is an 81-year-old black male, admitted to the hospital with near syncope. He was found to be severely anemic with hemoglobin down as low as 7.3. The patient has been transfused 2 units, he is up to 8.9. He has been taken to the endoscopy suite by Dr. Oneill today to do an upper endoscopy to look for the source of any bleeding. PHYSICAL EXAMINATION: GENERAL: The patient is awake and alert, however, oriented only to person, not to time, place, or myself. The patient apparently does not have any history of recent bleeding or tarry stools. LABORATORY DATA: His iron level was 14. TIBC was 415. TSH was 2.83. Urine is negative. Examination is unchanged. IMPRESSION: Near syncope, severe anemia. An 81-year-old black male with history of hypertension and dementia. Kenny Joseph MD
--- NOTE | 2017-05-28 00:57 | PN ---
DATE: SUBJECTIVE: This is an 81-year-old patient admitted with severe anemia, poor historian and dementia. I did discuss with the patient and also patient's and the patient's daughter before. PHYSICAL EXAMINATION: VITAL SIGNS: Stable. ABDOMEN: Soft. LABORATORY DATA: Hemoglobin is 8.9, status post 2 units transfusion. IMPRESSION: This is an 81-year-old patient admitted with severe anemia, hemoglobin on admission was 8.2. The patient's usually hemoglobin baseline a year ago in the chart was 12.4. The patient did have significant blood loss. Informed consent was obtained and the patient underwent an upper gastrointestinal endoscopy today. FINDINGS: The patient was found to have duodenal ulcer with gastritis and also esophagitis. I would recommend PPI. I did discuss with endoscopic findings with the patient's . I did explain to her that the mostly likely cause for the anemia could be due to the bleeding from duodenal ulcer, which is significant in size. However, the reasonable thing is to find out any other source of blood loss in the colon. The patient's was also advised to discuss with their daughter who is also a nurse. If the patient's family is agreeable, we will also consider colonoscopy; however, preparation of the patient for colonoscopy could be a challenging issue, but in view of the significant blood loss and anemia, it is reasonable to consider the colonoscopy during this admission. Thank you very much for allowing us to participate in the care of the patient. Pamella Oneill MD
--- NOTE | 2017-05-28 10:17 | PN ---
DATE: SUMMARY: An 81-year-old black male admitted to the hospital with near syncope. He was found to have severe anemia. The patient underwent upper endoscopy by Dr. Oneill yesterday. He was found to have large duodenal ulcer, gastritis, and esophagitis. The patient's hemoglobin is stable at 8.9. Laboratory data unremarkable. The patient is awake, however, he has dementia. The patient will be prepped for a colonoscopy. Start physical therapy and occupational therapy. We will follow his blood counts. Start him on iron after his colonoscopy and look for an eventual discharge in the next 24-48 hours. The patient is without complaints. Abdomen is soft. Vital signs are stable. Kenny Joseph MD
[2017-05-28 10:26] LABS: BASO # 0.05 K/mm3 (0.0-2.0); BASO % 0.5 % (0.0-3.0); EOS # 0.6 (0.0-0.7); GRAN # 6.32 (1.4-6.5); GRAN % 65.3 % (50.0-68.0); HEMATOCRIT 28.8 % (42.0-52.0); LYMPH # 1.6 (1.2-3.4); LYMPH % 16.9 % (22.0-35.0); MEAN CELL VOLUME 88.3 fl (80.0-105.0); MEAN CORPUSCULAR HEMOGLOBIN 27.9 pg (25.0-35.0); MEAN CORPUSCULAR HGB CONC 31.6 g/dl (31.0-37.0); MONO # 1.1 (0.1-0.6); MONO % 11.3 % (1.0-6.0); RED CELL DISTRIBUTION WIDTH 14.8 % (11.5-14.5); WHITE BLOOD COUNT 9.7 10^3/ul (4.5-11.0)
--- NOTE | 2017-05-28 14:18 | CP.PCM.PN ---
<Sandy Adhikari - Last Filed: 05/28/17 14:17> Subjective - Date & Time of Evaluation Date of Evaluation: 05/28/17 Time of Evaluation: 10:10 - Subjective Subjective: S&E at bedside, had EGD yesterday found to have duodenal ulcer, no bleeding, patient reported to be pulling out IV this am, Had soft brown BM, incontinent on floor. No N/V or abdominal pain, remains confused. Objective - Vital Signs/Intake and Output Vital Signs (last 24 hours): Temp Pulse Resp BP Pulse Ox 98.4 F 64 20 139/59 L 93 L 05/28/17 12:00 05/28/17 12:00 05/28/17 12:00 05/28/17 12:00 05/28/17 05:36 Intake and Output: 05/28/17 05/28/17 06:59 18:59 Intake Total 0 Output Total 1 Balance -1 - Medications Medications: Current Medications Amlodipine Besylate (Norvasc) 5 mg PO DAILY [facility] Last Admin: 05/28/17 09:56 Dose: 5 mg Donepezil HCl (Aricept) 10 mg PO [facility] Last Admin: 05/27/17 22:00 Dose: 10 mg Famotidine (Pepcid) 20 mg PO 1000,2200 [facility] Lisinopril (Zestril) 40 mg PO DAILY [facility] Last Admin: 05/28/17 09:56 Dose: 40 mg Primidone (Mysoline) 50 mg PO BID [facility] Last Admin: 05/28/17 09:56 Dose: 50 mg Trazodone HCl (Desyrel) 50 mg PO [facility] Last Admin: 05/27/17 22:00 Dose: 50 mg - Labs Labs: 05/28/17 10:10 05/26/17 05:00 - Constitutional Appears: No Acute Distress - Eye Exam Eye Exam: Normal appearance. absent: Scleral icterus - ENT Exam ENT Exam: Mucous Membranes Moist - Neck Exam Neck Exam: Normal Inspection - Respiratory Exam Respiratory Exam: NORMAL BREATHING PATTERN. absent: Respiratory Distress - Cardiovascular Exam Cardiovascular Exam: +S1, +S2 - GI/Abdominal Exam GI & Abdominal Exam: Soft, Normal Bowel Sounds. absent: Guarding, Tenderness, Rebound - Neurological Exam Neurological Exam: Alert, Altered (confused, h/o dementia) - Skin Skin Exam: Dry, Warm Assessment and Plan - Assessment and Plan (Free Text) Assessment: ASSESSMENT: Anemia, s/p 2 u PRBC s/p EGD: duodenal ulcer/esophagitis/gastritis Dementia Near syncope HTN PLAN: Change protonix to pepcid 20 mg po bid on clear liquid monitor H/H on Aricept would benefit from colon, we will slowly prep patient, give a dose of mag citrate today and tomorrow, plan for colon of friday. Seen and discussed w/ Dr. Oneill. <Pamella Oneill V - Last Filed: 05/28/17 22:38> Objective - Vital Signs/Intake and Output Vital Signs (last 24 hours): Temp Pulse Resp BP Pulse Ox 98.2 F 64 18 131/69 98 05/28/17 17:51 05/28/17 18:00 05/28/17 17:51 05/28/17 17:51 05/28/17 17:51 Intake and Output: 05/28/17 05/29/17 18:59 06:59 Intake Total 780 Balance 780 - Medications Medications: Current Medications Amlodipine Besylate (Norvasc) 5 mg PO DAILY [facility] Last Admin: 05/28/17 09:56 Dose: 5 mg Donepezil HCl (Aricept) 10 mg PO HS [facility] Last Admin: 05/27/17 22:00 Dose: 10 mg Famotidine (Pepcid) 20 mg PO 1000,2200 [facility] Last Admin: 05/28/17 14:48 Dose: 20 mg Lisinopril (Zestril) 40 mg PO DAILY [facility] Last Admin: 05/28/17 09:56 Dose: 40 mg Primidone (Mysoline) 50 mg PO BID [facility] Last Admin: 05/28/17 18:26 Dose: 50 mg Trazodone HCl (Desyrel) 50 mg PO HS [facility] Last Admin: 05/27/17 22:00 Dose: 50 mg - Labs Labs: 05/28/17 10:10 05/26/17 05:00 Attending/Attestation - Attestation I have personally seen and examined this patient.: Yes I have fully participated in the care of the patient.: Yes I have reviewed all pertinent clinical information, including history, physical exam and plan: Yes Notes (Text): this patient was seen and evaluated.. Patient did have a large bowel movement.. Status pos EGD which revealed greater duodenal ulcer with crater Patient is on PPI. We will switch it over to H2 blockers later Physical examination, no tenderness I did discuss with the patient's yesterday. Would consider doing colonoscopy to follow to further rule out the colon source of bleeding in addition 05/28/17 22:34
[2017-05-28] MEDS ORDERED: Magnesium Citrate Oral SOL (300 ml) PO ONE ×2 (16:00→18:30)
[2017-05-29] MEDS ORDERED: Bisacodyl 5mg EC Tab PO ONE (10:38)
--- NOTE | 2017-05-29 13:53 | CP.PCM.PN ---
<Sandy Adhikari - Last Filed: 05/29/17 13:51> Subjective - Date & Time of Evaluation Date of Evaluation: 05/29/17 Time of Evaluation: 10:35 - Subjective Subjective: S&E at bedside, chart reviewed, had large BM last night, no melena, tolerated half of magnesium citrate, patient was refusing IV and labs. No acute distress. On clear liquids. Objective - Vital Signs/Intake and Output Vital Signs (last 24 hours): Temp Pulse Resp BP Pulse Ox 98.4 F 61 18 103/42 L 97 05/29/17 12:00 05/29/17 12:00 05/29/17 12:00 05/29/17 12:00 05/29/17 06:00 Intake and Output: 05/29/17 05/29/17 06:59 18:59 Intake Total 1020 Output Total 0 Balance 1020 - Medications Medications: Current Medications Amlodipine Besylate (Norvasc) 5 mg PO DAILY [facility] Last Admin: 05/29/17 10:05 Dose: 5 mg Bisacodyl (Dulcolax) 10 mg PO ONCE ONE Stop: 05/30/17 06:01 Donepezil HCl (Aricept) 10 mg PO HS [facility] Last Admin: 05/28/17 23:24 Dose: 10 mg Famotidine (Pepcid) 20 mg PO 1000,2200 [facility] Last Admin: 05/29/17 10:05 Dose: 20 mg Lisinopril (Zestril) 40 mg PO DAILY [facility] Last Admin: 05/29/17 10:05 Dose: 40 mg Magnesium Citrate (Citrate Of Mag) 300 ml PO ONCE ONE Stop: 05/29/17 14:01 Primidone (Mysoline) 50 mg PO BID [facility] Last Admin: 05/29/17 10:05 Dose: 50 mg Trazodone HCl (Desyrel) 50 mg PO HS [facility] Last Admin: 05/28/17 23:24 Dose: 50 mg - Labs Labs: 05/28/17 10:10 05/26/17 05:00 - Constitutional Appears: No Acute Distress - Head Exam Head Exam: NORMOCEPHALIC - Eye Exam Eye Exam: Normal appearance. absent: Scleral icterus - ENT Exam ENT Exam: Mucous Membranes Moist - Neck Exam Neck Exam: Normal Inspection - Respiratory Exam Respiratory Exam: NORMAL BREATHING PATTERN. absent: Respiratory Distress - Cardiovascular Exam Cardiovascular Exam: +S1, +S2 - GI/Abdominal Exam GI & Abdominal Exam: Soft, Normal Bowel Sounds. absent: Guarding, Tenderness, Rebound - Extremities Exam Extremities Exam: absent: Pedal Edema - Neurological Exam Neurological Exam: Alert, Altered (confused, h/o dementia), Awake - Skin Skin Exam: Dry, Warm Assessment and Plan - Assessment and Plan (Free Text) Assessment: SSESSMENT: Anemia, s/p 2 u PRBC s/p EGD: duodenal ulcer/esophagitis/gastritis Dementia Near syncope HTN PLAN: continue pepcid 20 mg po bid on clear liquid monitor H/H on Aricept give duloclax 10 mg Po now and at 6am on 05/30/17 give dose magnesium citrate in afternoon, see orders plan for colon 05/30/17, npo after 12midnight except meds, spoke to PCP and nursing staff Seen and discussed w/ Dr. Oneill. <Pamella Oneill V - Last Filed: 05/29/17 22:49> Objective - Vital Signs/Intake and Output Vital Signs (last 24 hours): Temp Pulse Resp BP Pulse Ox 98.6 F 80 18 135/70 97 05/29/17 18:00 05/29/17 18:00 05/29/17 18:00 05/29/17 18:00 05/29/17 18:00 Intake and Output: 05/29/17 05/30/17 18:59 06:59 Intake Total 1080 Output Total 3 Balance 1077 - Medications Medications: Current Medications Amlodipine Besylate (Norvasc) 5 mg PO DAILY [facility] Last Admin: 05/29/17 10:05 Dose: 5 mg Bisacodyl (Dulcolax) 10 mg PO ONCE ONE Stop: 05/30/17 06:01 Donepezil HCl (Aricept) 10 mg PO HS [facility] Last Admin: 05/29/17 21:12 Dose: 10 mg Famotidine (Pepcid) 20 mg PO 1000,2200 [facility] Last Admin: 05/29/17 21:13 Dose: 20 mg Lisinopril (Zestril) 40 mg PO DAILY [facility] Last Admin: 05/29/17 10:05 Dose: 40 mg Primidone (Mysoline) 50 mg PO BID [facility] Last Admin: 05/29/17 17:40 Dose: 50 mg Trazodone HCl (Desyrel) 50 mg PO HS [facility] Last Admin: 05/29/17 21:12 Dose: 50 mg - Labs Labs: 05/28/17 10:10 05/26/17 05:00 Attending/Attestation - Attestation I have personally seen and examined this patient.: Yes I have fully participated in the care of the patient.: Yes I have reviewed all pertinent clinical information, including history, physical exam and plan: Yes Notes (Text): this patient was seen and evaluated earlier. this is an addendum to EGD progress report dictated by Sandy Adhikari APN On examination abdomen soft no tenderness. Patient not in acute distress I did discuss with . editorial manager regarding this patient's bowel prep. He would benefit from colonoscopy. EGD done revealed a duodenal ulcer Continue PPI Follow-up with a hemoglobin and hematocrit Patient is scheduled for colonoscopy in a.m. 05/29/17 22:48
[2017-05-29] MEDS ORDERED: Magnesium Citrate Oral SOL (300 ml) PO ONE (14:00)
--- NOTE | 2017-05-29 14:28 | PN ---
DATE: SUBJECTIVE: The patient is an 81-year-old black male, admitted to the hospital with syncope, was found to be anemic, found to have a large duodenal ulcer on upper endoscopy. The patient has been noncompliant with taking the prep for colonoscopy. We will attempt the colonoscopy tomorrow. The patient also refused blood work recently. PHYSICAL EXAMINATION: GENERAL: The patient is awake and alert, but disoriented, he has dementia. VITAL SIGNS: Stable. CHEST: Clear. ABDOMEN: Soft. Bowel sounds are normoactive. LABORATORY DATA: H and H is stable at 9.1 and 28.8. PLAN: Plan is for a possible colonoscopy in the morning; if not, discharge to home. Kenny Joseph MD
[2017-05-30] MEDS ORDERED: Bisacodyl 5mg EC Tab PO ONE (06:00)
[2017-05-30 07:12] LABS: BASO # 0.05 K/mm3 (0.0-2.0); BASO % 0.5 % (0.0-3.0); EOS # 0.3 (0.0-0.7); EOS % 2.9 % (1.5-5.0); GRAN # 6.92 (1.4-6.5); GRAN % 71.3 % (50.0-68.0); HEMATOCRIT 30.5 % (42.0-52.0); LYMPH # 1.5 (1.2-3.4); MEAN CELL VOLUME 86.9 fl (80.0-105.0); MEAN CORPUSCULAR HEMOGLOBIN 27.4 pg (25.0-35.0); MEAN CORPUSCULAR HGB CONC 31.5 g/dl (31.0-37.0); MEAN PLATELET VOLUME 8.5 fl (7.0-11.0); MONO % 10.3 % (1.0-6.0); WHITE BLOOD COUNT 9.7 10^3/ul (4.5-11.0)
[2017-05-30 07:14] LABS: INR 1.31 (0.93-1.08); PARTIAL THROMBOPLASTIN TIME 27.9 Seconds (25.1-36.5)
[2017-05-30 08:34] LABS: BLOOD UREA NITROGEN 9 mg/dL (7-21); CALCIUM 8.5 mg/dL (8.4-10.5); CARBON DIOXIDE 26 mmol/L (21-33); CHLORIDE 105 mmol/L (98-107); GFR AFRICAN-AMERICAN > 60; GLUCOSE,RANDOM 93 mg/dL (70-110); POTASSIUM 3.7 mmol/L (3.6-5.0); SODIUM 137 mmol/L (132-148)
[2017-05-30] MEDS ORDERED: Sodium Chloride 0.9% 1,000 ML IV SCH (09:45)
[2017-05-30] MEDS ORDERED: Propofol 10 mg/ml Inj (20 ML) ONE (12:19)
[2017-05-30] MEDS ORDERED: Etomidate 20 mg/10ml Inj IV ONE (13:14)
[2017-05-30 14:21] VITALS: RESP 3; TEMP 98.4; O2SAT 99
[2017-05-30 17:35] VITALS: BP 139/64; PULSE 65
== END 2017-05-30 19:05 | disposition home or self-care (01) | DRG 811 ==
LOC: ED 13:32 → ERH 16:14 → 3RSO 05-26 18:01
PROVIDERS: ADMIT Internal Medicine; ATTEND Internal Medicine
PROC: 30233N1 Transfusion of Nonautologous Red Blood Cells into Peripheral Vein, Percutaneous Approach (ICD-10-PCS; 2017-05-26)
PROC: 0DB68ZX Excision of Stomach, Via Natural or Artificial Opening Endoscopic, Diagnostic (ICD-10-PCS; 2017-05-27)
PROC: 0DBH8ZX Excision of Cecum, Via Natural or Artificial Opening Endoscopic, Diagnostic (ICD-10-PCS; principal; 2017-05-30 12:30)
DX: D64.9 Anemia, unspecified (principal); K56.2 Volvulus; G93.89 Other specified disorders of brain; K26.9 Duodenal ulcer, unspecified as acute or chronic, without hemorrhage or perforation; G30.9 Alzheimer's disease, unspecified; F02.80 Dementia in other diseases classified elsewhere, unspecified severity, without behavioral disturbance, psychotic disturbance, mood disturbance, and anxiety; D12.0 Benign neoplasm of cecum; K62.1 Rectal polyp; K29.70 Gastritis, unspecified, without bleeding; K44.9 Diaphragmatic hernia without obstruction or gangrene; K20.9 Esophagitis, unspecified; K57.30 Diverticulosis of large intestine without perforation or abscess without bleeding; K64.8 Other hemorrhoids; I10 Essential (primary) hypertension; F32.9 Major depressive disorder, single episode, unspecified; E78.5 Hyperlipidemia, unspecified; R55 Syncope and collapse

== ENCOUNTER 2017-07-12 10:28 | Inpatient (IN) | payer MEDICARE ==
[2017-07-12 11:45] LABS: BASO # 0.03 K/mm3 (0.0-2.0); BASO % 0.2 % (0.0-3.0); EOS # 0.2 (0.0-0.7); EOS % 1.2 % (1.5-5.0); GRAN # 10.37 (1.4-6.5); HEMOGLOBIN 8.8 g/dL (14.0-18.0); LYMPH # 1.1 (1.2-3.4); LYMPH % 8.4 % (22.0-35.0); MEAN CELL VOLUME 78.1 fl (80.0-105.0); MEAN CORPUSCULAR HEMOGLOBIN 24.4 pg (25.0-35.0); MEAN CORPUSCULAR HGB CONC 31.3 g/dl (31.0-37.0); MEAN PLATELET VOLUME 8.2 fl (7.0-11.0); MONO # 1.3 (0.1-0.6); MONO % 10.2 % (1.0-6.0); RBC 3.6 10^6/uL (3.5-6.1)
[2017-07-12 12:02] LABS: ALB/GLOB RATIO 0.9 (1.1-1.8); ALBUMIN 3.5 g/dL (3.0-4.8); ALT/SGPT 70 U/L (7-56); AST/SGOT 57 U/L (17-59); BLOOD UREA NITROGEN 19 mg/dL (7-21); CALCIUM 9.3 mg/dL (8.4-10.5); GFR AFRICAN-AMERICAN > 60; GFR NON-AFRICAN AMERICAN > 60
--- NOTE | 2017-07-12 12:58 | RAD ---
HISTORY: r/o infiltrate COMPARISON: 05/25/2017 FINDINGS: LUNGS: No active pulmonary disease. PLEURA: No significant pleural effusion identified, no pneumothorax apparent. CARDIOVASCULAR: Normal. OSSEOUS STRUCTURES: No significant abnormalities. VISUALIZED UPPER ABDOMEN: Normal. OTHER FINDINGS: None. IMPRESSION: No active disease.
[2017-07-12 14:22] LABS: URINE APPEARANCE SLIGHT-CLOUDY (CLEAR); URINE BILIRUBIN NEGATIVE (NEGATIVE); URINE BLOOD TRACE-INTACT (NEGATIVE); URINE COLOR YELLOW (YELLOW); URINE GLUCOSE (UA) NEGATIVE (NEGATIVE); URINE LEUKOCYTE ESTERASE MODERATE Leu/uL (NEGATIVE); URINE NITRATE NEGATIVE (NEGATIVE); URINE PROTEIN TRACE mg/dL (<30 mg/dL); URINE UROBILINOGEN 0.2 E.U./dL (<1 E.U./dL)
--- NOTE | 2017-07-12 14:29 | ED PDOC ---
Arrival/HPI - General Chief Complaint: Medical Clearance Time Seen by Provider: 07/12/17 10:35 Historian: Patient - History of Present Illness Narrative History of Present Illness (Text): 07/12/17 14:26 A 81 year old male, whose past medical history includes Alzheimer, is brought to the emergency department via EMS after family called 911 to bring their father to the emergency department because they want him to be placed in the [facility]. the patient currently denies any complaints at this time. Time/Duration: Other (no complaints ) Symptom Course: Other (no complaints ) Quality: Other (no complaints ) Activities at Onset: Other (no complaints ) Context: Home Past Medical History - Provider Review Nursing Documentation Reviewed: Yes - Infectious Disease Hx of Infectious Diseases: None - Tetanus Immunization Tetanus Immunization: Unknown - Cardiac Hx Hypertension: Yes - Pulmonary Hx Respiratory Disorders: No - Neurological Hx Neurological Disorder: Yes Hx Alzheimer's Disease: Yes Hx Dementia: Yes - HEENT Hx HEENT Disorder: No - Renal Hx Renal Disorder: No - Endocrine/Metabolic Hx Endocrine Disorders: No - Hematological/Oncological Hx Blood Disorders: No - Integumentary Hx Dermatological Disorder: No - Musculoskeletal/Rheumatological Hx Musculoskeletal Disorders: No - Gastrointestinal Hx Gastrointestinal Disorders: No - Genitourinary/Gynecological Hx Genitourinary Disorders: No - Psychiatric Hx Psychophysiologic Disorder: Yes Hx Depression: Yes Hx Substance Use: No - Past Surgical History Past Surgical History: Unable to Obtain - Surgical History Hx Orthopedic Surgery: Yes (rt knee) - Anesthesia Hx Anesthesia Reactions: No Hx Malignant Hyperthermia: No - Suicidal Assessment Feels Threatened In Home Enviroment: No Family/Social History - Physician Review Nursing Documentation Reviewed: Yes Family/Social History: No Known Family HX Smoking Status: Never Smoked Hx Alcohol Use: No Hx Substance Use: No Hx Substance Use Treatment: No Allergies/Home Meds Allergies/Adverse Reactions: Allergies No Known Allergies Allergy (Verified 07/12/17 10:34) Home Medications: Home Meds Medication Instructions Recorded Confirmed Donepezil [Aricept] 10 mg PO HS 06/14/13 05/25/17 Primidone 50 mg PO BID 06/14/13 05/25/17 Furosemide [Lasix] 1 tab PO DAILY 05/25/17 05/25/17 Lisinopril [Zestril] 1 tab PO DAILY 05/25/17 05/25/17 amLODIPine [Norvasc] 1 tab PO DAILY 05/25/17 05/25/17 traZODone [Desyrel] 1 tab PO HS 05/25/17 05/25/17 Review of Systems - Physician Review All systems were reviewed & negative as marked: Yes - Review of Systems Constitutional: absent: Fevers Respiratory: absent: SOB Cardiovascular: absent: Chest Pain Gastrointestinal: absent: Abdominal Pain Genitourinary Male: absent: Dysuria Neurological: absent: Headache Physical Exam Vital Signs Reviewed: Yes Vital Signs Temp Pulse Resp BP Pulse Ox 07/12/17 16:16 99.7 F H 82 16 146/76 100 07/12/17 11:00 98.0 F 85 16 135/77 100 Temperature: Afebrile Blood Pressure: Normal Pulse: Regular Respiratory Rate: Normal Appearance: Positive for: Well-Appearing, Non-Toxic, Comfortable Pain Distress: None Mental Status: Positive for: Alert and Oriented X 3 - Systems Exam Head: Present: Atraumatic, Normocephalic Pupils: Present: PERRL Extroacular Muscles: Present: EOMI Conjunctiva: Present: Normal Mouth: Present: Moist Mucous Membranes Neck: Present: Normal Range of Motion Respiratory/Chest: Present: Clear to Auscultation, Good Air Exchange. No: Respiratory Distress, Accessory Muscle Use Cardiovascular: Present: Regular Rate and Rhythm, Normal S1, S2. No: Murmurs Abdomen: Present: Normal Bowel Sounds. No: Tenderness, Distention, Peritoneal Signs Back: Present: Normal Inspection Upper Extremity: Present: Normal Inspection. No: Cyanosis, Edema Lower Extremity: Present: Normal Inspection. No: Edema Neurological: Present: GCS=15, CN II-XII Intact, Speech Normal Skin: Present: Rashes, Laceration (1 cm tear on the posterior left thigh; no active bleeding, no signs of infection) Psychiatric: Present: Alert, Oriented x 3, Normal Insight, Normal Concentration Medical Decision Making ED Course and Treatment: 07/12/17 14:30 Progress notes: Case discussed with Dr. Joseph who reviewed the case. The patient is still pending Urinalysis and if Urinalysis is negative, the patient is to be discharged and then follow up with PMD. 07/12/2017 12:56 Chest X-ray IMPRESSION: No active disease. Dictator: José Miguel Woodruff MD - Lab Interpretations Lab Results: 07/12/17 11:30 07/12/17 11:30 Lab Results 07/12/17 14:00: Urine Color Yellow, Urine Appearance Slight-cloudy, Urine pH 7.0 , Ur Specific [place] 1.010, Urine Protein Trace H, Urine Glucose (UA) Negative , Urine Ketones Trace H, Urine Blood Trace-intact H, Urine Nitrate Negative, Urine Bilirubin Negative, Urine Urobilinogen 0.2, Ur Leukocyte Esterase Moderate H, Urine RBC 1 - 3, Urine WBC 25 - 30, Ur Epithelial Cells 1 - 3, Urine Bacteria Mod 07/12/17 11:30: C-React Prot High Sens Pending, TSH 3rd Generation 2.78 07/12/17 11:30: Sodium 137, Potassium 4.0, Chloride 102, Carbon Dioxide 26, Anion Gap 13, BUN 19, Creatinine 1.0, Est GFR ( Amer) > 60, Est GFR (Non- Af Amer) > 60, Random Glucose 99, Calcium 9.3, Total Bilirubin 0.5, AST 57, ALT 70 H, Alkaline Phosphatase 71, Total Protein 7.3, Albumin 3.5, Globulin 3.8, Albumin/Globulin Ratio 0.9 L 07/12/17 11:30: WBC 13.0 H D, RBC 3.60, Hgb 8.8 L, Hct 28.1 L, MCV 78.1 L D, MCH 24.4 L, MCHC 31.3, RDW 18.0 H, Plt Count 360, MPV 8.2, Gran % 80.0 H, Lymph % (Auto) 8.4 L, [place] % (Auto) 10.2 H, Eos % (Auto) 1.2 L, Baso % (Auto) 0.2, Gran # 10.37 H, Lymph # 1.1 L, [place] # 1.3 H, Eos # 0.2, Baso # 0.03 - RAD Interpretation Radiology Orders: 07/12/17 10:37 CHEST PORTABLE [RAD] Stat - Medication Orders Current Medication Orders: Amlodipine Besylate (Norvasc) 1 mg PO DAILY HIEU Donepezil HCl (Aricept) 10 mg PO HS HIEU Ceftriaxone Sodium (Rocephin 1 Gram Ivpb) 1 gm in 100 mls @ 100 mls/hr IVPB DAILY HIUE PRN Reason: Protocol Lisinopril (Zestril) 40 mg PO DAILY HIEU Pantoprazole Sodium (Protonix Ec Tab) 40 mg PO DAILY HIEU Primidone (Mysoline) 50 mg PO BID HIEU Last Admin: 07/12/17 18:45 Dose: 50 mg Trazodone HCl (Desyrel) 50 mg PO HS HIEU Discontinued Medications Ceftriaxone Sodium (Rocephin 1 Gram Ivpb) 1 gm in 100 mls @ 200 mls/hr IVPB STAT STA PRN Reason: Protocol Stop: 07/12/17 15:43 Last Admin: 07/12/17 16:09 Dose: 200 mls/hr eMAR Start Stop Document 07/12/17 16:09 EQ (Rec: 07/12/17 16:09 EQ [facility] [id number]) Intravenous Solution Start Date 07/12/17 Start Time 16:09 - Scribe Statement The provider has reviewed the documentation as recorded by the Srinivasaibdimple Ibrahim Provider Scribe Attestation: All medical record entries made by the Scribe were at my direction and personally dictated by me. I have reviewed the chart and agree that the record accurately reflects my personal performance of the history, physical exam, medical decision making, and the department course for this patient. I have also personally directed, reviewed, and agree with the discharge instructions and disposition. Disposition/Present on Arrival - Present on Arrival Any Indicators Present on Arrival: No History of DVT/PE: No History of Uncontrolled Diabetes: No Urinary Catheter: No History of Decub. Ulcer: No History Surgical Site Infection Following: None - Disposition Have Diagnosis and Disposition been Completed?: Yes Diagnosis: UTI (urinary tract infection), Altered mental status Disposition: HOSPITALIZED Disposition Time: 15:00 Condition: FAIR
[2017-07-12 14:48] LABS: URINE BACTERIA MOD (NEG); URINE WBC 25 - 30 /hpf (0-6)
[2017-07-12] MEDS ORDERED: cefTRIAXone 1 gm 1 GM/100 ML BAG IVPB STA (15:14)
[2017-07-12 20:34] VITALS: BMI 25.0
[2017-07-12 21:34] LABS: FOLATE 19.9 ng/mL
[2017-07-13] MEDS: cefTRIAXone 1 gm 1 GM/100 ML BAG IVPB SCH (10:16)
[2017-07-13] MEDS: Pantoprazole 40 mg EC Tab PO SCH (10:16)
--- NOTE | 2017-07-14 09:55 | HP ---
DATE: 07/13/2017 SUBJECTIVE: An 81-year-old black male with a history of seizure disorder, history of syncope in the past, and history of anemia of GI blood loss, admitted to the hospital with change in mental status, confusion, and disorientation. He was found to have urinary tract infection, elevated white count, pyuria, bacteriuria, and leukocytosis. The patient had low-grade fevers. PHYSICAL EXAMINATION: GENERAL: Shows a well-developed, well-nourished black male in no apparent distress. He is not oriented. He is oriented only to person, not to time, place or other surroundings. The patient is awake and alert, verbal, confluent, fluent speech. There are no focal lateralizing deficits. VITAL SIGNS: Temperature is 99, blood pressure 109/54. HEART: Regular sinus rhythm. No carotid bruits noted. CHEST: Clear to auscultation and percussion. ABDOMEN: Abdomen is soft. There is no CVA tenderness. There is tenderness over palpation of the bladder. EXTREMITIES: No cyanosis, clubbing or edema. LABORATORY DATA: Hemoglobin 8.8 and white count is 13,000, left shift. IMPRESSION: Urinary tract infection, change in mental status, confusion, disorientation, anemia, and dementia. Kenny Joseph MD
[2017-07-14 10:17] LABS: HEMOGLOBIN 8.1 g/dL (14.0-18.0); MEAN CELL VOLUME 77.6 fl (80.0-105.0); MEAN CORPUSCULAR HEMOGLOBIN 24.5 pg (25.0-35.0); MEAN CORPUSCULAR HGB CONC 31.6 g/dl (31.0-37.0); MEAN PLATELET VOLUME 8.4 fl (7.0-11.0); RBC 3.3 10^6/uL (3.5-6.1); RED CELL DISTRIBUTION WIDTH 17.9 % (11.5-14.5); WHITE BLOOD COUNT 9.5 10^3/ul (4.5-11.0)
[2017-07-14] MEDS: Pantoprazole 40 mg EC Tab PO SCH (13:01)
[2017-07-14] MEDS: cefTRIAXone 1 gm 1 GM/100 ML BAG IVPB SCH (13:02)
--- NOTE | 2017-07-14 13:13 | PN ---
DATE: 07/14/2017 An 81-year-old black male admitted to the hospital with chronic anemia, urinary tract infection, change in mental status, confusion, and history of dementia. The patient is growing gram-negative rods in the urine and temperature is 98.5. Tolerating his diet well. Vital signs are stable. White count is 13,000, to repeat it. PLAN: Start physical therapy, outpatient therapy, and TCU evaluation. Possible SIR evaluation. Kenny Joseph MD
[2017-07-14] MEDS: Petrolatum Oint Foilpak (5 gm) TOP SCH (17:27)
[2017-07-14 19:05] VITALS: RESP 20
[2017-07-15 09:45] LABS: IRON 15 ug/dL (45-180)
[2017-07-15 09:56] LABS: TOTAL IRON BINDING CAPACITY 267 ug/dL (261-462)
[2017-07-15] MEDS: Petrolatum Oint Foilpak (5 gm) TOP SCH ×2 (09:59→17:18)
[2017-07-15] MEDS: Cefpodoxime (Vantin) 200 mg Tab PO SCH ×2 (09:59→22:34)
[2017-07-15] MEDS: Pantoprazole 40 mg EC Tab PO SCH (09:59)
[2017-07-15 10:05] LABS: % IRON SATURATION 5 % (20-55)
--- NOTE | 2017-07-15 21:25 | PN ---
DATE: SUBJECTIVE: An 81-year-old black male. The patient has a long history of dementia, mild history of chronic anemia, and was admitted to the hospital with change in mental status, confusion, disorientation, urinary tract infection with Proteus, sensitive to antibiotics. The patient has been treated with IV antibiotics. He has been afebrile for the last 24 to 48 hours. Hemoglobin is low at 8.1. He has had a history of chronic anemia in the past. The patient's mental status is back to his baseline. He is still oriented only to person not time or place. The patient is being evaluated for [facility] versus halfway correction. Physical examination is unchanged. Kenny Joseph MD
[2017-07-16 07:54] LABS: HEMOGLOBIN 8.2 g/dL (14.0-18.0); MEAN CELL VOLUME 77.6 fl (80.0-105.0); MEAN CORPUSCULAR HEMOGLOBIN 24.1 pg (25.0-35.0); MEAN CORPUSCULAR HGB CONC 31.1 g/dl (31.0-37.0); MEAN PLATELET VOLUME 8.3 fl (7.0-11.0); RBC 3.4 10^6/uL (3.5-6.1); RED CELL DISTRIBUTION WIDTH 18.1 % (11.5-14.5); WHITE BLOOD COUNT 9.5 10^3/ul (4.5-11.0)
[2017-07-16] MEDS: Cefpodoxime (Vantin) 200 mg Tab PO SCH (09:31)
[2017-07-16] MEDS: Pantoprazole 40 mg EC Tab PO SCH (09:32)
[2017-07-16] MEDS: Petrolatum Oint Foilpak (5 gm) TOP SCH (09:34)
[2017-07-16 09:37] VITALS: BP 138/71
[2017-07-16 09:39] VITALS: PULSE 72; TEMP 98.8; O2SAT 96
--- NOTE | 2017-07-16 13:07 | PN ---
DATE: SUBJECTIVE: An 81-year-old black male with history of dementia, admitted to the hospital with chronic anemia and urinary tract infection. PHYSICAL EXAMINATION VITAL SIGNS: The patient is afebrile. Vital signs are stable. Physical examination is unchanged. The patient has completed a course of IV antibiotics. She should be discharged with p.o. antibiotics and transferred to subacute rehab and possible . Kenny Joseph MD
== END 2017-07-16 12:37 | DRG 690 ==
LOC: ED 10:28 → ERH 15:17 → 5RSO 18:03
PROVIDERS: ADMIT Internal Medicine; ATTEND Internal Medicine
DX: N39.0 Urinary tract infection, site not specified (principal); B96.4 Proteus (mirabilis) (morganii) as the cause of diseases classified elsewhere; D64.9 Anemia, unspecified; G30.9 Alzheimer's disease, unspecified; F02.80 Dementia in other diseases classified elsewhere, unspecified severity, without behavioral disturbance, psychotic disturbance, mood disturbance, and anxiety; G40.909 Epilepsy, unspecified, not intractable, without status epilepticus; I10 Essential (primary) hypertension; Z79.899 Other long term (current) drug therapy; R40.2412 Glasgow coma scale score 13-15, at arrival to emergency department

== ENCOUNTER 2017-07-25 21:37 | Emergency (ER) | payer MEDICARE ==
[2017-07-25 21:51] VITALS: TEMP 98.2; BMI 21.1
--- NOTE | 2017-07-25 21:52 | ED PDOC ---
Addendum entered and electronically signed by Pia Crum DO 07/26/17 01:10: Review Of Systems Review Of Systems: ROS cannot be obtained secondary to pt's inabilty to answer questions. Original Note: Arrival/HPI - General Historian: Patient - History of Present Illness Time/Duration: 24 hours Symptom Onset: Sudden Symptom Course: Unchanged <Pia Crum - Last Filed: 07/26/17 01:08> - General Historian: Longterm <Eleazar Byers DO - Last Filed: 07/26/17 06:20> - General Chief Complaint: Altered Mental Status Time Seen by Provider: 07/25/17 21:51 - History of Present Illness Narrative History of Present Illness (Text): CC: screaming in [facility] (not baseline) 07/25/17 21:52 81M brought from [facility] for screaming which is not his baseline since yesterday. He has a history of Alzheimer's. Patient is not baseline according to reason for bringing patient to ER. Patient has bed sores due to contracted lower extremities. PMH: CAD, Alzheimer, CVA, HTN, frontal lobe mass 01/21/15 1cm meningioma with left sided weakness due to meningioma, right ischial ulcer, right inner thigh pressure ulcer, anemia, seizures Allergies: NKDA (Pia Crum) Past Medical History - Provider Review Nursing Documentation Reviewed: Yes - Infectious Disease Hx of Infectious Diseases: None - Tetanus Immunization Tetanus Immunization: Unknown - Cardiac Hx Cardiac Disorders: Yes Hx Hypertension: Yes - Pulmonary Hx Respiratory Disorders: No - Neurological Hx Neurological Disorder: Yes (near syncope) Hx Alzheimer's Disease: Yes Hx Dementia: Yes Other/Comment: frontal lobe mass 01/21/15 1cm meningioma, left side weakness, ams - HEENT Hx HEENT Disorder: No - Renal Hx Renal Disorder: No - Endocrine/Metabolic Hx Endocrine Disorders: No - Hematological/Oncological Hx Anemia: Yes - Integumentary Hx Dermatological Disorder: Yes Other/Comment: multiple b/l gleuteus, back of left thigh, penis and back of r leg mascerated skin redness skin tears see initial wound care and skin assesment , skin discolorations b/l lower legs - Musculoskeletal/Rheumatological Hx Falls: No - Gastrointestinal Hx Gastrointestinal Disorders: No - Genitourinary/Gynecological Hx Incontinence: Yes (urine and stool) - Psychiatric Hx Psychophysiologic Disorder: Yes Hx Depression: Yes Hx Substance Use: No - Past Surgical History Past Surgical History: Unable to Obtain - Surgical History Hx Orthopedic Surgery: Yes (rt knee) - Anesthesia Hx Anesthesia Reactions: No Hx Malignant Hyperthermia: No - Suicidal Assessment Feels Threatened In Home Enviroment: No <Pia Crum - Last Filed: 07/26/17 01:08> Family/Social History - Physician Review Nursing Documentation Reviewed: Yes Family/Social History: Unknown Family HX Smoking Status: Never Smoked Hx Alcohol Use: No Hx Substance Use: No Hx Substance Use Treatment: No <Pia Crum - Last Filed: 07/26/17 01:08> Allergies/Home Meds <Pia Crum - Last Filed: 07/26/17 01:08> <Eleazar Byers DO - Last Filed: 07/26/17 06:20> Allergies/Adverse Reactions: Allergies No Known Allergies Allergy (Verified 07/25/17 21:50) Home Medications: Home Meds Medication Instructions Recorded Confirmed Donepezil [Aricept] 10 mg PO HS 06/14/13 07/25/17 Primidone 50 mg PO BID 06/14/13 07/25/17 Lisinopril [Zestril] 1 tab PO DAILY 05/25/17 07/25/17 amLODIPine [Norvasc] 1 tab PO DAILY 05/25/17 07/25/17 traZODone [Desyrel] 1 tab PO HS 05/25/17 07/25/17 Physical Exam Vital Signs Reviewed: Yes Temperature: Afebrile Blood Pressure: Hypertensive Pulse: Regular Respiratory Rate: Normal Mental Status: Positive for: Alert and Oriented X 3 - Systems Exam Head: Present: Atraumatic Pupils: Present: PERRL Extroacular Muscles: Present: EOMI Conjunctiva: Present: Normal Ears: Present: Normal Mouth: Present: Moist Mucous Membranes Pharnyx: Present: Normal Nose (External): Present: Atraumatic. No: Abrasion, Contusion, Laceration Neck: Present: Normal Range of Motion, Trachea Midline. No: JVD Cardiovascular: Present: Regular Rate and Rhythm, Normal S1, S2 Abdomen: Present: Normal Bowel Sounds. No: Tenderness, Distention Upper Extremity: Present: Normal Inspection, Normal ROM, Capillary Refill < 2s, Other (equal strength on both upper extremities ). No: Cyanosis, Edema Lower Extremity: Present: Normal Inspection, NORMAL PULSES, Capillary Refill < 2 s. No: Edema, Normal ROM, Erythema Neurological: Present: GCS=15, CN II-XII Intact Psychiatric: Present: Alert. No: Oriented x 3 <Pia Crum - Last Filed: 07/26/17 01:08> Vital Signs Temp Pulse Resp BP Pulse Ox 07/26/17 01:58 82 19 156/70 H 98 07/26/17 00:39 76 17 154/78 H 100 07/25/17 21:48 98.2 F 80 20 162/88 H 98 07/25/17 21:42 98.2 F 79 16 162/88 H 98 Medical Decision Making - Lab Interpretations I have reviewed the lab results: Yes Interpretation: No clinic. lab abnormalty - EKG Interpretation Interpreted by ED Physician: Yes Type: 12 lead EKG (80bpm NSR) <Pia Crum - Last Filed: 07/26/17 01:08> <Eleazar Byers DO - Last Filed: 07/26/17 06:20> ED Course and Treatment: 07/25/17 22:19 f/u CBC, CMP, Mg, Phos Blood and Urine cultures drawn VBG shock ordered Urinalysis via Straight cath ordered as well. EKG CXR Troponin I (Pia Crum) Patient Seen With Resident: In agreement with resident note which contains more details about the patient. Patient was seen and evaluated with resident. Came up with plan and treatment together. Patient presents from [facility] for screaming which is not his baseline since yesterday. Plan: -- VBG -- EKG -- CXR -- Influenza A B -- Urinalysis w/ micro -- Labs (Eleazar Byers DO) - Lab Interpretations Narrative Lab Interpretation (Text): 07/25/17 23:33 Urinalysis negative CBC negative for leukocytosis (Pia Crum) Lab Results: 07/25/17 22:14 07/25/17 22:14 Lab Results 07/25/17 22:45: Influenza Typ A,B (EIA) Negative for flu a/b 07/25/17 22:14: Sodium 141, Chloride 106, Potassium 4.3, Carbon Dioxide 25, Anion Gap 14, BUN 27 H, Creatinine 1.1, Est GFR ( Amer) > 60, Est GFR ( Non-Af Amer) > 60, Random Glucose 106, Calcium 9.4, Phosphorus 2.9, Magnesium 2.1, Total Bilirubin 0.2, AST 28, ALT 26, Alkaline Phosphatase 59, Troponin I < 0.01, Total Protein 7.2, Albumin 3.4, Globulin 3.8, Albumin/Globulin Ratio 0.9 L 07/25/17 22:14: WBC 10.2, RBC 3.52, Hgb 8.6 L, Hct 28.2 L, MCV 80.1, MCH 24.4 L , MCHC 30.5 L, RDW 20.4 H, Plt Count 370, MPV 8.8, Gran % 66.6, Lymph % (Auto) 23.8, [place] % (Auto) 7.0 H, Eos % (Auto) 2.1, Baso % (Auto) 0.5, Gran # 6.81 H, Lymph # 2.4, [place] # 0.7 H, Eos # 0.2, Baso # 0.05 07/25/17 22:14: pO2 50, VBG pH 7.35, VBG pCO2 52.0, VBG HCO3 28.7 H, VBG Total CO2 30.3 H, VBG O2 Sat (Calc) 88.2 H, VBG Base Excess 2.1 H, VBG Potassium 4.6, Sodium 141.0, Chloride 111.0 H, Glucose 112 H, Lactate 1.7, FiO2 21.0, Venous Blood Potassium 4.6 07/25/17 22:14: Urine Color Yellow, Urine Appearance Clear, Urine pH 6.0, Ur Specific [place] 1.020, Urine Protein Negative, Urine Glucose (UA) Negative, Urine Ketones Negative, Urine Blood Small H, Urine Nitrate Negative, Urine Bilirubin Negative, Urine Urobilinogen 0.2, Ur Leukocyte Esterase Negative, Urine RBC 5 - 10, Urine WBC 0 - 2, Ur Epithelial Cells 0 - 2, Urine Bacteria Trace - RAD Interpretation Radiology Orders: 07/25/17 22:08 CXR [CHEST PORTABLE] [RAD] Stat no acute interstitial disease (Pia Crum) <Pia Crum - Last Filed: 07/26/17 01:08> <Eleazar Byers DO - Last Filed: 07/26/17 06:20> - Scribe Statement Roxann Mora Provider Scribe Attestation: All medical record entries made by the Scribe were at my direction and personally dictated by me. I have reviewed the chart and agree that the record accurately reflects my personal performance of the history, physical exam, medical decision making, and the department course for this patient. I have also personally directed, reviewed, and agree with the discharge instructions and disposition. (Eleazar Byers DO) Disposition/Present on Arrival - Present on Arrival Any Indicators Present on Arrival: No History of DVT/PE: No History of Uncontrolled Diabetes: No Urinary Catheter: No History of Decub. Ulcer: Yes History Surgical Site Infection Following: None - Disposition Have Diagnosis and Disposition been Completed?: Yes Disposition Time: 23:32 Patient Plan: Discharge (to [facility]) <Pia Crum - Last Filed: 07/26/17 01:08> - Disposition Disposition Time: 23:00 <Eleazar Byers DO - Last Filed: 07/26/17 06:20> - Disposition Diagnosis: Alzheimer disease Disposition: HOME/ ROUTINE Condition: GOOD Forms: Wanderu (Uzbek)
[2017-07-25 22:29] LABS: BASO # 0.05 K/mm3 (0.0-2.0); BASO % 0.5 % (0.0-3.0); EOS # 0.2 (0.0-0.7); EOS % 2.1 % (1.5-5.0); GRAN # 6.81 (1.4-6.5); GRAN % 66.6 % (50.0-68.0); HEMOGLOBIN 8.6 g/dL (14.0-18.0); LYMPH # 2.4 (1.2-3.4); LYMPH % 23.8 % (22.0-35.0); MEAN CELL VOLUME 80.1 fl (80.0-105.0); MEAN CORPUSCULAR HEMOGLOBIN 24.4 pg (25.0-35.0); MEAN CORPUSCULAR HGB CONC 30.5 g/dl (31.0-37.0); MEAN PLATELET VOLUME 8.8 fl (7.0-11.0); MONO # 0.7 (0.1-0.6); RBC 3.52 10^6/uL (3.5-6.1); RED CELL DISTRIBUTION WIDTH 20.4 % (11.5-14.5); URINE BILIRUBIN NEGATIVE (NEGATIVE); URINE BLOOD SMALL (NEGATIVE); URINE GLUCOSE (UA) NEGATIVE (NEGATIVE); URINE LEUKOCYTE ESTERASE NEGATIVE Leu/uL (NEGATIVE); URINE NITRATE NEGATIVE (NEGATIVE); URINE PROTEIN NEGATIVE mg/dL (<30 mg/dL); URINE UROBILINOGEN 0.2 E.U./dL (<1 E.U./dL); WHITE BLOOD COUNT 10.2 10^3/ul (4.5-11.0)
[2017-07-25 22:31] LABS: VENOUS BLOOD GAS BASE EXCESS 2.1 mmol/L (0.0-2.0); VENOUS BLOOD GAS PO2 50 mm/Hg (30-55); VENOUS BLOOD PH 7.35 (7.32-7.43)
[2017-07-25 22:34] LABS: URINE APPEARANCE CLEAR (CLEAR); URINE COLOR YELLOW (YELLOW)
[2017-07-25 22:40] LABS: URINE WBC 0 - 2 /hpf (0-6)
[2017-07-25 22:41] LABS: URINE BACTERIA TRACE (NEG); URINE EPITHELIAL CELLS 0 - 2 /hpf (0-5)
[2017-07-25 22:42] LABS: ALB/GLOB RATIO 0.9 (1.1-1.8); ALBUMIN 3.4 g/dL (3.0-4.8); ALT/SGPT 26 U/L (7-56); AST/SGOT 28 U/L (17-59); BLOOD UREA NITROGEN 27 mg/dL (7-21); CALCIUM 9.4 mg/dL (8.4-10.5); GFR AFRICAN-AMERICAN > 60; GFR NON-AFRICAN AMERICAN > 60; MAGNESIUM 2.1 mg/dL (1.7-2.2)
[2017-07-25 22:51] LABS: TROPONIN I < 0.01 ng/mL
[2017-07-26 02:00] VITALS: BP 156/70; PULSE 82; RESP 19; O2SAT 98
--- NOTE | 2017-07-26 08:49 | RAD ---
HISTORY: workup for ams COMPARISON: 07/12/2017. FINDINGS: LUNGS: The lungs are clear. No focal consolidation. PLEURA: No significant pleural effusion identified, no pneumothorax apparent. CARDIOVASCULAR: Normal. OSSEOUS STRUCTURES: No significant abnormalities. VISUALIZED UPPER ABDOMEN: Normal. OTHER FINDINGS: None. IMPRESSION: No active pulmonary disease.
--- NOTE | 2017-07-26 15:59 | CARD ---
APPROVED REPORT EKG Measurement Heart [id number] <Conclusion> Normal sinus rhythm Minimal voltage criteria for LVH, may be normal variant Borderline ECG
== END 2017-07-26 01:58 ==
LOC: ED 21:37
DX: G30.9 Alzheimer's disease, unspecified (principal); F02.80 Dementia in other diseases classified elsewhere, unspecified severity, without behavioral disturbance, psychotic disturbance, mood disturbance, and anxiety; I25.10 Atherosclerotic heart disease of native coronary artery without angina pectoris; I10 Essential (primary) hypertension; D64.9 Anemia, unspecified

== ENCOUNTER 2017-10-23 10:00 | Inpatient (IN) | payer MEDICARE ==
[2017-10-23 10:17] VITALS: BMI 24.3
[2017-10-23] MEDS ORDERED: Sodium Chloride 0.9% 500 ML IV STA (10:53)
[2017-10-23] MEDS ORDERED: DiphenhydrAMINE 50 mg/ml Inj IVP STA (10:53)
[2017-10-23] MEDS ORDERED: Famotidine 20mg/50ml 20 MG/50 ML BAG IVPB STA (10:54)
--- NOTE | 2017-10-23 10:56 | ED PDOC ---
Arrival/HPI - General Chief Complaint: Weakness/Neurological Deficit Time Seen by Provider: 10/23/17 10:46 Historian: Spouse, EMS EM Caveat: Other (severe alzhemiers) - History of Present Illness Narrative History of Present Illness (Text): 10/23/17 10:54 (pt is a poor historian) pt p/w ~ 2 weeks of worsening dysphagia, currently unable to swallow solids, and difficult time with swallowing pills; pt also with decr appetite, + losing weight, + progressive weakness witness by pt's spouse; pt appears to be worse than his usual mentation; no fever/sweats, no focal tenderness/pain noted, no vomiting, no urinary/bowel changes; pt lives at home with spouse spouse has expressed concern about taking care of pt at home currently and is requesting assistance pt is here for further eval pt's without other complaints. PCP: Dr Tiffany Joseph pt lives at home with spouse and is bed-bound Time/Duration: > week (2 weeks) Symptom Onset: Gradual Symptom Course: Worsening Activities at Onset: Rest Context: Home Past Medical History - Provider Review Nursing Documentation Reviewed: Yes - Travel History Have you recently traveled outside [place] w/in the past 3 mons?: No - Past History Past History: No Previous - Infectious Disease Hx of Infectious Diseases: None - Tetanus Immunization Tetanus Immunization: Unknown - Cardiac Hx Cardiac Disorders: Yes Hx Hypertension: Yes - Pulmonary Hx Respiratory Disorders: No - Neurological Hx Neurological Disorder: Yes (near syncope) Hx Alzheimer's Disease: Yes Hx Dementia: Yes Other/Comment: frontal lobe mass 01/21/15 1cm meningioma, left side weakness, ams - HEENT Hx HEENT Disorder: No - Renal Hx Renal Disorder: No - Endocrine/Metabolic Hx Endocrine Disorders: No - Hematological/Oncological Hx Anemia: Yes - Integumentary Hx Dermatological Disorder: Yes Other/Comment: multiple b/l gleuteus, back of left thigh, penis and back of r leg mascerated skin redness skin tears see initial wound care and skin assesment , skin discolorations b/l lower legs - Musculoskeletal/Rheumatological Hx Falls: No - Gastrointestinal Hx Gastrointestinal Disorders: No - Genitourinary/Gynecological Hx Incontinence: Yes (urine and stool) - Psychiatric Hx Psychophysiologic Disorder: Yes Hx Depression: Yes Hx Substance Use: No - Past Surgical History Past Surgical History: Unable to Obtain - Surgical History Hx Orthopedic Surgery: Yes (rt knee) - Anesthesia Hx Anesthesia Reactions: No Hx Malignant Hyperthermia: No - Suicidal Assessment Feels Threatened In Home Enviroment: No Family/Social History - Physician Review Nursing Documentation Reviewed: Yes Family/Social History: No Known Family HX Smoking Status: Never Smoked Hx Alcohol Use: No Hx Substance Use: No Hx Substance Use Treatment: No Allergies/Home Meds Allergies/Adverse Reactions: Allergies No Known Allergies Allergy (Verified 10/23/17 10:22) Home Medications: Home Meds Medication Instructions Recorded Confirmed Donepezil [Aricept] 10 mg PO HS 06/14/13 10/23/17 Primidone 50 mg PO BID 06/14/13 10/23/17 Lisinopril [Zestril] 1 tab PO DAILY 05/25/17 10/23/17 amLODIPine [Norvasc] 1 tab PO DAILY 05/25/17 10/23/17 Risperidone [Risperdal] 1 mg PO HS 10/23/17 10/23/17 Review of Systems - Review of Systems Constitutional: Fatigue Eyes: Normal ENT: Other (unable to swallow solids). absent: Hearing Changes, Rhinorrhea Respiratory: Normal. absent: SOB Cardiovascular: Normal. absent: Chest Pain Gastrointestinal: Normal. absent: Abdominal Pain Genitourinary Male: Normal Musculoskeletal: Normal Skin: Normal Neurological: Normal Endocrine: Normal Hemo/Lymphatic: Normal Psychiatric: Normal Physical Exam Vital Signs Reviewed: Yes Vital Signs Temp Pulse Resp BP Pulse Ox 10/23/17 16:00 99 F 88 22 136/60 97 10/23/17 14:57 98.6 F 77 16 135/71 97 10/23/17 12:10 99.9 F H 99 H 22 127/85 95 10/23/17 10:46 97.6 F 99 H 18 115/81 100 Temperature: Afebrile Blood Pressure: Normal Pulse: Tachycardic Respiratory Rate: Normal Appearance: Positive for: Non-Toxic, Uncomfortable, Other (alert/awake, non- verbal, moans intermittently (per family, this is baseline), NAD, resting in bed ) Pain Distress: None Mental Status: Positive for: Confused, other (+ advanced dementia/alzhemier's) - Systems Exam Head: Present: Atraumatic, Normocephalic, Other (mild bi-temporal wasting) Pupils: Present: PERRL, Other (no photophobia, sclera anicteric, no nystagmus) Extroacular Muscles: Present: EOMI Conjunctiva: Present: Normal Ears: Present: Normal Mouth: Present: Dry, Other (poor dentitions, no drooling/stridor, uvula/tongue are midline) Pharnyx: Present: Normal Nose (External): Present: Atraumatic Nose (Internal): Present: Normal Inspection Neck: Present: Normal Range of Motion, Trachea Midline, Other (no midline tenderness, no nuchal rigidity). No: Meningeal Signs, MIDLINE TENDERNESS Respiratory/Chest: Present: Clear to Auscultation, Good Air Exchange, Other ( coarse breath sounds noted bibasiliar, no wheezing/rales/rhonchi, no tachypenia , no accessory muscle use noted). No: Respiratory Distress, Accessory Muscle Use Cardiovascular: Present: Regular Rate and Rhythm, Normal S1, S2 Abdomen: Present: Normal Bowel Sounds, Other (well nourished male, no focal tenderness, no frias's sign, no mcburney's point tenderness, no masses/rebound/ guarding) Back: Present: Normal Inspection, Decubitus Ulcer (stage 3 saccral region with no surrounding skin erythema, no expressible discharge noted). No: Midline Tenderness, Paraspinal Tenderness Upper Extremity: Present: Normal Inspection, Normal ROM, NORMAL PULSES Lower Extremity: Present: Normal Inspection, NORMAL PULSES, Neurovascularly Intact Neurological: No: Speech Normal Skin: Present: Warm Psychiatric: Present: Alert Medical Decision Making ED Course and Treatment: 10/23/17 10:55 Impression: dysphagia i have consider all the differential diagnosis regarding pt's chief medical complaints/clinical findings, including but are not limited to: dysphagia, FTT/ weakness A/P: dysphagia, weakness/FTT - labs - xray - ct - ua - supportive care - observe/reevaluation 10/23/17 12:16 Code sepsis called. 10/23/17 12:[address] Joseph, made aware, agrees with ED mgt/txt, agrees with admission; would like to consult Surgery for wound care Surgery resident contacted, made aware, will see patient 1225 surgery team evaluated patient at bedside, recommend silverdene/actofoam? wound care/bandaging, will continue to monitor Family/spouse of the patient are made aware of pt's medical results agrees with admission Re-evaluation Time: 12:30 Reassessment Condition: Unchanged - Critical Care Critical Care Minutes: 30 minutes Critical Care Time: Excluding Proc Time Narrative Critical Care (Text): 10/25/17 18:16 critical care time: 30min, excluding procedure time, excluding time teaching residents/students/mid-level providers; including initial eval/diagnosis, diagnostic interpretation, re-eval, consultations, final disposition - Lab Interpretations Microbiology Results: Microbiology Results 10/23/17 11:00 Blood-Venous Blood Culture - Preliminary Gram Negative Bobo 10/23/17 11:00 Blood-Venous Gram Stain - Final 10/23/17 10:30 Blood-Venous Blood Culture - Preliminary Gram Negative Bobo 10/23/17 10:30 Blood-Venous Gram Stain - Final Lab Results: 10/23/17 11:00 10/23/17 11:00 Lab Results 10/23/17 11:00: pO2 49, VBG pH 7.38, VBG pCO2 46.0, VBG HCO3 27.2, VBG Total CO2 28.6 H, VBG O2 Sat (Calc) 87.6 H, VBG Base Excess 1.5, VBG Potassium 3.8, Sodium 144.0, Chloride 110.0 H, Glucose 166 H, Lactate 2.6 H, FiO2 21.0, Venous Blood Potassium 3.8 10/23/17 11:00: Sodium 146, Chloride 107, Potassium 3.6, Carbon Dioxide 27, Anion Gap 16, BUN 22 H, Creatinine 0.9, Est GFR ( Amer) > 60, Est GFR ( Non-Af Amer) > 60, Random Glucose 159 H, Calcium 10.2, Total Bilirubin 0.7, AST 77 H D, ALT 65 H, Alkaline Phosphatase 147 H D, Troponin I < 0.01, Total Protein 7.8, Albumin 3.6, Globulin 4.2, Albumin/Globulin Ratio 0.9 L, Lipase 121 10/23/17 11:00: WBC 15.2 H D, RBC 4.06, Hgb 10.6 L D, Hct 33.6 L, MCV 82.8, MCH 26.1, MCHC 31.5, RDW 20.0 H, Plt Count 490 H, MPV 8.8, Gran % 72.2 H, Lymph % ( Auto) 18.9 L, [place] % (Auto) 7.4 H, Eos % (Auto) 1.2 L, Baso % (Auto) 0.3, Gran # 10.98 H, Lymph # (Auto) 2.9, [place] # (Auto) 1.1 H, Eos # (Auto) 0.2, Baso # ( Auto) 0.04 I have reviewed the lab results: Yes Interpretation: Abnormal lab values (elevated WBCs, elevated lactic, elevated LFTs, + UA) - RAD Interpretation Narrative RAD Interpretations (Text): 10/23/17 11:27 Chest X-ray Creator : José Miguel Mott MD FINDINGS: LUNGS: No active pulmonary disease. PLEURA: No significant pleural effusion identified, no pneumothorax apparent. CARDIOVASCULAR: Normal. OSSEOUS STRUCTURES: No significant abnormalities. VISUALIZED UPPER ABDOMEN: Normal. IMPRESSION: No active disease. 10/23/17 12:17 PROCEDURE: CT HEAD WITHOUT CONTRAST. HISTORY: AMS COMPARISON: Comparison made with CT scan of the brain 05/25/2017 TECHNIQUE: Axial computed tomography images were obtained through the head/brain without intravenous contrast. Radiation dose: Total exam DLP = 867.31 mGy-cm. This CT exam was performed using one or more of the following dose reduction techniques: Automated exposure control, adjustment of the mA and/or kV according to patient size, and/or use of iterative reconstruction technique. FINDINGS: HEMORRHAGE: No acute parenchymal, subarachnoid or extra-axial hemorrhage. BRAIN: Moderate to significant diffuse/ confluent chronic white matter ischemic changes are again seen extending peripherally into the deep and subcortical white matter both cerebral hemispheres. 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 There is also some extension of the changes into the white matter tracts of both basal nuclei within few more discrete scattered bilateral basal nuclei lacunar type infarcts. . Note that the possibility of a small hyperacute infarct cannot be completely excluded. Significant generalized volume loss. Dense vascular calcifications both carotid siphons and vertebral arteries. VENTRICLES: No obstructive hydrocephalus. CALVARIUM: Unremarkable. PARANASAL SINUSES: Unremarkable as visualized. No significant inflammatory changes. MASTOID AIR CELLS: Unremarkable as visualized. No inflammatory changes. OTHER FINDINGS: None. IMPRESSION: No evidence of acute intracranial hemorrhage. Moderate to significant diffuse/ confluent chronic white matter ischemic changes are again seen extending peripherally into the deep and subcortical white matter both cerebral hemispheres. 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 There is also some extension of the changes into the white matter tracts of both basal nuclei within few more discrete scattered bilateral basal nuclei lacunar type infarcts. . Note that the possibility of a small hyperacute infarct cannot be completely excluded. . Significant generalized volume loss. Radiology Orders: 10/23/17 10:49 HEAD W/O CONTRAST [CT] Stat CHEST PORTABLE [RAD] Stat Safety Lead: Radiologist - EKG Interpretation EKG Interpretation (Text): 10/23/17 12:58 NSR at 100 bpm, LAD, no ectopy, non-specific st-t changes, ABNL EKG; unchanged compare with old ekg 06/2017 Interpreted by ED Physician: Yes Type: 12 lead EKG Comparison: Similar to previous EKG - Medication Orders Current Medication Orders: Acetaminophen (Tylenol 650 Mg Supp) 650 mg RC Q6H PRN PRN Reason: Fever >100.4 F Last Admin: 10/25/17 15:40 Dose: 650 mg [facility] Pain/Vitals Document 10/25/17 15:40 IRENE (Rec: 10/25/17 15:40 IRENE [id number]) Pain Reassessment Is This A Pain ReAssessment? Yes Sleep Is patient sleeping during reassessment? No Presence of Pain Presence of Pain Yes Re-Assess: [facility] Pain/Vitals Document 10/25/17 16:40 IRENE (Rec: 10/25/17 17:03 IRENE [id number]) Pain Reassessment Is This A Pain ReAssessment? Yes Sleep Is patient sleeping during reassessment? No Presence of Pain Presence of Pain No Amlodipine Besylate (Norvasc) 5 mg PO DAILY [facility] Last Admin: 10/25/17 09:13 Dose: 5 mg Donepezil HCl (Aricept) 10 mg PO HS [facility] Last Admin: 10/24/17 21:01 Dose: 10 mg Dextrose/Sodium Chloride (Dextrose 5%/0.45% Ns 1000 Ml) 1,000 mls @ 75 mls/hr IV .[id number] [facility] Last Admin: 10/25/17 08:41 Dose: 75 mls/hr eMAR Start Stop Document 10/25/17 08:41 IRENE (Rec: 10/25/17 08:41 IRENE [id number]) Intravenous Solution Start Date 10/25/17 Start Time 08:41 Meropenem (Merrem Iv 1 Gm Premix) 50 mls @ 100 mls/hr IVPB Q8 HIE[facility] PRN Reason: Protocol Last Admin: 10/25/17 14:10 Dose: 100 mls/hr eMAR Start Stop Document 10/25/17 14:10 IRENE (Rec: 10/25/17 14:10 IRENE [id number]) Intravenous Solution Start Date 10/25/17 Start Time 14:10 End Date 10/25/17 End time 14:40 Total Infusion Time 30 Potassium Chloride (Potassium Chloride 20 Meq/100 Ml) 20 meq in 100 mls @ 50 mls/hr IVPB ONCE ONE Stop: 10/25/17 18:21 Last Admin: 10/25/17 17:16 Dose: 50 mls/hr eMAR Start Stop Document 10/25/17 17:16 IRENE (Rec: 10/25/17 17:17 IRENE [id number]) Intravenous Solution Start Date 10/25/17 Start Time 17:16 End Date 10/25/17 End time 19:16 Total Infusion Time 120 Lisinopril (Zestril) 40 mg PO DAILY [facility] Last Admin: 10/25/17 09:14 Dose: 40 mg Comments: does not scan Mupirocin (Bactroban Ointment) 0 gm TOP BID [facility] Last Admin: 10/25/17 17:15 Dose: 1 applic Pantoprazole Sodium (Protonix Ec Tab) 40 mg PO DAILY [facility] Last Admin: 10/25/17 09:13 Dose: 40 mg Primidone (Mysoline) 50 mg PO BID [facility] Last Admin: 10/25/17 17:16 Dose: 50 mg Risperidone (Risperdal Tab) 1 mg PO HS [facility]IEU PRN Reason: Protocol Last Admin: 10/24/17 21:01 Dose: 1 mg Behavioural Document 10/24/17 21:01 KTR (Rec: 10/24/17 21:01 KTR [id number]) Behavior Behavior for Medication: Anxiety Continuous crying/screaming/ yelling Dangers to self/others Re-Assess: Reassess Psych Meds Document 10/24/17 22:01 KTR (Rec: 10/25/17 03:16 KTR [email or web address]) Reassess Psych Med Effective Discontinued Medications Diphenhydramine HCl (Benadryl) 25 mg IVP STAT STA Stop: 10/23/17 10:54 Last Admin: 10/23/17 11:02 Dose: 25 mg IVP Administration Document 10/23/17 11:02 HP (Rec: 10/23/17 11:02 HP [id number]) Charges for Administration # of IVP Administrations 1 Sodium Chloride (Sodium Chloride 0.9%) 500 mls @ 999 mls/hr IV .Q31M STA Stop: 10/23/17 11:23 Last Admin: 10/23/17 12:12 Dose: 999 mls/hr eMAR Start Stop Document 10/23/17 12:12 HP (Rec: 10/23/17 12:12 HP [id number]) Intravenous Solution Start Date 10/23/17 Start Time 12:12 End Date 10/23/17 End time 13:12 Total Infusion Time 60 Famotidine (Pepcid 20mg/50ml Premix) 20 mg in 50 mls @ 100 mls/hr IVPB STAT STA Stop: 10/23/17 11:23 Last Admin: 10/23/17 12:11 Dose: 100 mls/hr eMAR Start Stop Document 10/23/17 12:11 HP (Rec: 10/23/17 12:12 HP [id number]) Intravenous Solution Start Date 10/23/17 Start Time 12:12 End Date 10/23/17 End time 12:42 Total Infusion Time 30 Piperacillin Sod/Tazobactam Sod (Zosyn 3.375 In Ns 100ml) 100 mls @ 200 mls/hr IVPB STAT STA PRN Reason: Protocol Stop: 10/23/17 12:35 Last Admin: 10/23/17 12:55 Dose: 200 mls/hr eMAR Start Stop Document 10/23/17 12:55 HP (Rec: 10/23/17 12:55 HP [id number]) Intravenous Solution Start Date 10/23/17 Start Time 12:55 End Date 10/23/17 End time 13:25 Total Infusion Time 30 Ceftriaxone Sodium (Rocephin 1 Gram Ivpb) 1 gm in 100 mls @ 100 mls/hr IVPB DAILY HIEU PRN Reason: Protocol Last Admin: 10/24/17 10:02 Dose: 100 mls/hr eMAR Start Stop Document 10/24/17 10:02 MV (Rec: 10/24/17 10:03 MV [id number]) Intravenous Solution Start Date 10/24/17 Start Time 10:02 Lorazepam (Ativan) 1 mg IVP ONCE ONE PRN Reason: Protocol Stop: 10/23/17 11:14 Last Admin: 10/23/17 11:16 Dose: 1 mg IVP Administration Document 10/23/17 11:16 HP (Rec: 10/23/17 11:16 HP [id number]) Charges for Administration # of IVP Administrations 1 Lorazepam (Ativan) 1 mg IVP ONCE ONE PRN Reason: Protocol Stop: 10/23/17 11:16 Last Admin: 10/23/17 12:14 Dose: IVP Administration Document 10/23/17 12:14 HP (Rec: 10/23/17 12:14 HP [id number]) Charges for Administration # of IVP Administrations 0 Pneumococcal Polyvalent Vaccine (Pneumovax 23 Vaccine) 0.5 ml IM .ONCE ONE Stop: 10/23/17 17:32 Disposition/Present on Arrival - Present on Arrival Any Indicators Present on Arrival: No History of DVT/PE: No History of Uncontrolled Diabetes: No Urinary Catheter: No History of Decub. Ulcer: No History Surgical Site Infection Following: None - Disposition Have Diagnosis and Disposition been Completed?: Yes Diagnosis: Dysphagia, Failure to thrive, Weakness, At risk for sepsis, UTI (urinary tract infection) Disposition: HOSPITALIZED Disposition Time: 12:05 Patient Plan: Admission Patient Problems: Current Active Problems Problem Status Onset At risk for sepsis Acute Dysphagia Acute Failure to thrive Acute UTI (urinary tract infection) Acute Weakness Acute Condition: STABLE
[2017-10-23 11:06] LABS: VENOUS BLOOD GAS BASE EXCESS 1.5 mmol/L (0.0-2.0); VENOUS BLOOD GAS PO2 49 mm/Hg (30-55); VENOUS BLOOD PH 7.38 (7.32-7.43)
[2017-10-23 11:16] LABS: ALB/GLOB RATIO 0.9 (1.1-1.8); ALBUMIN 3.6 g/dL (3.0-4.8); ALT/SGPT 65 U/L (7-56); AST/SGOT 77 U/L (17-59); BASO # 0.04 K/mm3 (0.0-2.0); BASO % 0.3 % (0.0-3.0); BLOOD UREA NITROGEN 22 mg/dL (7-21); CALCIUM 10.2 mg/dL (8.4-10.5); EOS # 0.2 (0.0-0.7); EOS % 1.2 % (1.5-5.0); GFR AFRICAN-AMERICAN > 60; GFR NON-AFRICAN AMERICAN > 60; GRAN # 10.98 (1.4-6.5); GRAN % 72.2 % (50.0-68.0); HEMOGLOBIN 10.6 g/dL (14.0-18.0); LIPASE 121 U/L (23-300); LYMPH # 2.9 (1.2-3.4); LYMPH % 18.9 % (22.0-35.0); MEAN CELL VOLUME 82.8 fl (80.0-105.0); MEAN CORPUSCULAR HEMOGLOBIN 26.1 pg (25.0-35.0); MEAN CORPUSCULAR HGB CONC 31.5 g/dl (31.0-37.0); MEAN PLATELET VOLUME 8.8 fl (7.0-11.0); MONO # 1.1 (0.1-0.6); MONO % 7.4 % (1.0-6.0); RBC 4.06 10^6/uL (3.5-6.1); WHITE BLOOD COUNT 15.2 10^3/ul (4.5-11.0)
--- NOTE | 2017-10-23 11:25 | RAD ---
HISTORY: weakness COMPARISON: 07/25/2017 FINDINGS: LUNGS: No active pulmonary disease. PLEURA: No significant pleural effusion identified, no pneumothorax apparent. CARDIOVASCULAR: Normal. OSSEOUS STRUCTURES: No significant abnormalities. VISUALIZED UPPER ABDOMEN: Normal. OTHER FINDINGS: None. IMPRESSION: No active disease.
[2017-10-23 11:27] LABS: TROPONIN I < 0.01 ng/mL
[2017-10-23] MEDS ORDERED: Piperacillin/Tazobact 3.375 gm 100 ML IVPB STA (12:06)
--- NOTE | 2017-10-23 12:14 | CT ---
PROCEDURE: CT HEAD WITHOUT CONTRAST. HISTORY: AMS COMPARISON: Comparison made with CT scan of the brain 05/25/2017 TECHNIQUE: Axial computed tomography images were obtained through the head/brain without intravenous contrast. Radiation dose: Total exam DLP = 867.31 mGy-cm. This CT exam was performed using one or more of the following dose reduction techniques: Automated exposure control, adjustment of the mA and/or kV according to patient size, and/or use of iterative reconstruction technique. FINDINGS: HEMORRHAGE: No acute parenchymal, subarachnoid or extra-axial hemorrhage. BRAIN: Moderate to significant diffuse/ confluent chronic white matter ischemic changes are again seen extending peripherally into the deep and subcortical white matter both cerebral hemispheres. 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 There is also some extension of the changes into the white matter tracts of both basal nuclei within few more discrete scattered bilateral basal nuclei lacunar type infarcts. . Note that the possibility of a small hyperacute infarct cannot be completely excluded. Significant generalized volume loss. Dense vascular calcifications both carotid siphons and vertebral arteries. VENTRICLES: No obstructive hydrocephalus. CALVARIUM: Unremarkable. PARANASAL SINUSES: Unremarkable as visualized. No significant inflammatory changes. MASTOID AIR CELLS: Unremarkable as visualized. No inflammatory changes. OTHER FINDINGS: None. IMPRESSION: No evidence of acute intracranial hemorrhage. Moderate to significant diffuse/ confluent chronic white matter ischemic changes are again seen extending peripherally into the deep and subcortical white matter both cerebral hemispheres. 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 There is also some extension of the changes into the white matter tracts of both basal nuclei within few more discrete scattered bilateral basal nuclei lacunar type infarcts. . Note that the possibility of a small hyperacute infarct cannot be completely excluded. . Significant generalized volume loss.
[2017-10-23 12:25] LABS: URINE BILIRUBIN SMALL (NEGATIVE); URINE BLOOD NEGATIVE (NEGATIVE); URINE GLUCOSE (UA) NEGATIVE (NEGATIVE); URINE LEUKOCYTE ESTERASE NEGATIVE Leu/uL (NEGATIVE); URINE PROTEIN TRACE mg/dL (<30 mg/dL)
[2017-10-23 12:26] LABS: URINE APPEARANCE CLEAR (CLEAR); URINE COLOR DARK YELLOW (YELLOW)
[2017-10-23 12:39] LABS: URINE EPITHELIAL CELLS 0 - 2 /hpf (0-5); URINE RBC NEGATIVE /hpf (0-2); URINE WBC 0 - 2 /hpf (0-6)
[2017-10-23 12:40] LABS: URINE BACTERIA SMALL (NEG)
[2017-10-23 14:48] LABS: VENOUS BLOOD GAS BASE EXCESS 0.3 mmol/L (0.0-2.0); VENOUS BLOOD GAS PO2 58 mm/Hg (30-55); VENOUS BLOOD PH 7.35 (7.32-7.43)
[2017-10-23] MEDS: Dextrose 5%/0.45% NS 1,000 ML IV SCH (17:00)
[2017-10-23] MEDS ORDERED: Pneumococcal 23-Valent Vaccine IM ONE (17:31)
--- NOTE | 2017-10-23 17:35 | PCM.SEPTIC ---
Sepsis Progress Note - Reassessment Type Date of Evaluation: 10/23/17 Time of Evaluation: 17:35 Reassessment Type: Non-invasive reassessment - Non Invasive Reassessment Were the most recent vital sign reviewed: Yes Vital Sign (Latest): Temp Pulse Resp BP Pulse Ox 98.6 F 77 16 135/71 97 10/23/17 14:57 10/23/17 14:57 10/23/17 14:57 10/23/17 14:57 10/23/17 14:57 Cardiovascular: Yes: Regular Rate, Rhythm. No: Gallop, JVD, Murmur ( ) Respiratory: Yes: Normal Breath Sounds. No: Accessory Muscle Use, Rales, Rhonchi, Wheezing, Respiratory Distress Capillary Refill: Normal (Less than 2 sec) Pulses: Normal Radial, Normal Dorsalis Pedis, Normal Posterior Tibialis Skin: Normal Color, Warm, Dry - Invasive Reassessment (complete 2 of 4) Was a Central Venous Pressure Measurement obtained within 6 Hours after the presentation of septic shock: No Was a central venous oxygen measurement obtained within 6 hours after the presentation of septic shock: No Was a bedside cardiovascular ultrasound performed within 6 hours after the presentation of septic shock: No Was a passive leg raise performed or was a fluid challenge performed within 6 hrs of the initial fluid bolus: No Passive Leg Raise Result: Not Applicable Fluid Challenge performed: No
[2017-10-24] MEDS: Dextrose 5%/0.45% NS 1,000 ML IV SCH ×2 (06:11→21:03)
--- NOTE | 2017-10-24 08:44 | CARD ---
APPROVED REPORT EKG Measurement Heart [id number] IN 200P [id number] <Conclusion> Sinus tachycardia Otherwise normal ECG
[2017-10-24] MEDS ORDERED: cefTRIAXone 1 gm 1 GM/100 ML BAG IVPB SCH (10:00)
[2017-10-24] MEDS: Pantoprazole 40 mg EC Tab PO SCH (10:00)
[2017-10-24 10:34] LABS: HEMOGLOBIN 8.8 g/dL (14.0-18.0); MEAN CELL VOLUME 82.3 fl (80.0-105.0); MEAN CORPUSCULAR HEMOGLOBIN 25.6 pg (25.0-35.0); MEAN CORPUSCULAR HGB CONC 31.1 g/dl (31.0-37.0); MEAN PLATELET VOLUME 8.7 fl (7.0-11.0); RBC 3.44 10^6/uL (3.5-6.1); RED CELL DISTRIBUTION WIDTH 19.6 % (11.5-14.5); WHITE BLOOD COUNT 13.3 10^3/ul (4.5-11.0)
[2017-10-24 10:55] LABS: ALB/GLOB RATIO 0.9 (1.1-1.8); ALBUMIN 3.2 g/dL (3.0-4.8); ALT/SGPT 49 U/L (7-56); AST/SGOT 63 U/L (17-59); BLOOD UREA NITROGEN 18 mg/dL (7-21); CALCIUM 9.4 mg/dL (8.4-10.5); GFR AFRICAN-AMERICAN > 60; GFR NON-AFRICAN AMERICAN > 60
[2017-10-24] MEDS ORDERED: Barium Sulfate Susp 2.1% w/v, 2.0% w/w 450 mL Bottle PO ONE (10:58)
[2017-10-24] MEDS: Meropenem IV 1 gm in NS 50 ML IVPB SCH ×3 (11:10→21:02)
--- NOTE | 2017-10-24 12:57 | CP.PCM.CON ---
<Denys Alcantara - Last Filed: 10/24/17 12:47> History of Present Illness - History of Present Illness History of Present Illness: Podiatry Consult note: Dr. Abrams/Dr. Rodriguez 82 year old male with extensive PMHx was seen and evaluated at bedside for left heel hematoma. Patient appears to be alert but does not respond to the verbal commands. Unable to obtain complete history of the patient at this time. Review of Systems - Constitutional Constitutional: As Per HPI Past Patient History - Infectious Disease Hx of Infectious Diseases: None - Tetanus Immunizations Tetanus Immunization: Unknown - Past Social History Smoking Status: Never Smoked - CARDIAC Hx Cardiac Disorders: Yes Hx Hypertension: Yes - PULMONARY Hx Respiratory Disorders: No - NEUROLOGICAL Hx Neurological Disorder: Yes (near syncope) Hx Alzheimer's Disease: Yes Hx Dementia: Yes Other/Comment: frontal lobe mass 01/21/15 1cm meningioma, left side weakness, ams - HEENT Hx HEENT Problems: No - RENAL Hx Chronic Kidney Disease: No - ENDOCRINE/METABOLIC Hx Endocrine Disorders: No - HEMATOLOGICAL/ONCOLOGICAL Hx Anemia: Yes - INTEGUMENTARY Hx Dermatological Problems: Yes Other/Comment: multiple b/l gleuteus, back of left thigh, penis and back of r leg mascerated skin redness skin tears see initial wound care and skin assesment , skin discolorations b/l lower legs - MUSCULOSKELETAL/RHEUMATOLOGICAL Hx Falls: No - GASTROINTESTINAL Hx Gastrointestinal Disorders: No - GENITOURINARY/GYNECOLOGICAL Hx Incontinence: Yes (urine and stool) - PSYCHIATRIC Hx Psychophysiologic Disorder: Yes Hx Depression: Yes Hx Substance Use: No - SURGICAL HISTORY Hx Orthopedic Surgery: Yes (rt knee) - ANESTHESIA Hx Anesthesia Reactions: No Hx Malignant Hyperthermia: No Meds Allergies/Adverse Reactions: Allergies Allergy/AdvReac Type Severity Reaction Status Date / Time No Known Allergies Allergy Verified 10/23/17 10:22 - Medications Medications: Current Medications Acetaminophen (Tylenol 650 Mg Supp) 650 mg RC Q6H PRN PRN Reason: Fever >100.4 F Last Admin: 10/24/17 11:36 Dose: 650 mg Amlodipine Besylate (Norvasc) 5 mg PO DAILY [facility] Last Admin: 10/24/17 10:00 Dose: Not Given Donepezil HCl (Aricept) 10 mg PO HS [facility] Dextrose/Sodium Chloride (Dextrose 5%/0.45% Ns 1000 Ml) 1,000 mls @ 75 mls/hr IV .[id number] [facility] Last Admin: 10/24/17 06:11 Dose: 75 mls/hr Meropenem (Merrem Iv 1 Gm Premix) 50 mls @ 100 mls/hr IVPB Q8 [facility] PRN Reason: Protocol Last Admin: 10/24/17 11:10 Dose: 100 mls/hr Lisinopril (Zestril) 40 mg PO DAILY [facility] Last Admin: 10/24/17 10:00 Dose: Not Given Pantoprazole Sodium (Protonix Ec Tab) 40 mg PO DAILY [facility] Last Admin: 10/24/17 10:00 Dose: Not Given Primidone (Mysoline) 50 mg PO BID [facility] Last Admin: 10/24/17 10:00 Dose: Not Given Risperidone (Risperdal Tab) 1 mg PO HS [facility] PRN Reason: Protocol Physical Exam - Constitutional Appears: Well, Non-toxic, No Acute Distress - Extremities Exam Additional comments: LLE focused exam: VASC: DP/PT pulses are faintly palpable 1/4, Cap refill time: < 3 sec to all digits, Temp gradient warm to cool from proximal to distal, no pitting or non- pitting edema noted DERM: deep tissue injury/superficial hematoma noted on the plantar aspect of the left heel, no open lesions, no erythema, no clinical suspicion of active infection at this time NEURO: unable to obtain ORTHO: Patient is in contracted position in bed - pain on ROM of the LE, no pain on palpation of the plantar heel - Neurological Exam Neurological exam: Alert Results - Vital Signs Recent Vital Signs: Last Vital Signs Temp 100.7 F H 10/24/17 07:59 Pulse 84 10/24/17 07:59 Resp 20 10/24/17 07:59 BP 140/71 10/24/17 07:59 Pulse Ox 96 10/24/17 07:59 - Labs Result Diagrams: 10/24/17 10:25 10/24/17 10:25 Labs: Laboratory Results - last 24 hr 10/23/17 10/24/17 10/24/17 14:41 10:25 10:25 WBC 13.3 H RBC 3.44 L Hgb 8.8 L Hct 28.3 L MCV 82.3 MCH 25.6 MCHC 31.1 RDW 19.6 H Plt Count 406 MPV 8.7 pO2 58 H VBG pH 7.35 VBG pCO2 48.0 VBG HCO3 26.5 VBG Total CO2 28.0 VBG O2 Sat (Calc) 92.1 H VBG Base Excess 0.3 VBG Potassium 3.7 Sodium 146.0 148 Chloride 114.0 H 111 H Glucose 122 H Lactate 1.7 FiO2 21.0 Potassium 3.6 Carbon Dioxide 26 Anion Gap 15 BUN 18 Creatinine 1.0 Est GFR ( Amer) > 60 Est GFR (Non-Af Amer) > 60 Random Glucose 145 H Calcium 9.4 Total Bilirubin 0.7 AST 63 H ALT 49 Alkaline Phosphatase 100 Total Protein 6.8 Albumin 3.2 Globulin 3.6 Albumin/Globulin Ratio 0.9 L Venous Blood Potassium 3.7 Assessment & Plan - Assessment and Plan (Free Text) Assessment: 82 year old male evaluated at bedside for left heel deep tissue injury vs. hematoma Plan: Patient seen and evaluated at bedside with attending Dr. Brandon Labs, vitals, charts reviewed No source of infection from bilateral LE - plantar heel deep tissue injury appears stable Dressing applied using optifoam Bactroban ordered X-rays of left foot ordered Multipodus boots ordered - to be worn in bed at all times Thank you for the podiatry consult and allowing to take part in patient care Will continue to follow patient while in-house - Date & Time Date: 10/24/17 Time: 13:01 <Yoel Abrams - Last Filed: 10/24/17 14:43> Meds - Medications Medications: Current Medications Acetaminophen (Tylenol 650 Mg Supp) 650 mg RC Q6H PRN PRN Reason: Fever >100.4 F Last Admin: 10/24/17 11:36 Dose: 650 mg Amlodipine Besylate (Norvasc) 5 mg PO DAILY [facility] Last Admin: 10/24/17 10:00 Dose: Not Given Donepezil HCl (Aricept) 10 mg PO HS [facility] Dextrose/Sodium Chloride (Dextrose 5%/0.45% Ns 1000 Ml) 1,000 mls @ 75 mls/hr IV .[id number] [facility] Last Admin: 10/24/17 06:11 Dose: 75 mls/hr Meropenem (Merrem Iv 1 Gm Premix) 50 mls @ 100 mls/hr IVPB Q8 [facility] PRN Reason: Protocol Last Admin: 10/24/17 11:10 Dose: 100 mls/hr Lisinopril (Zestril) 40 mg PO DAILY [facility] Last Admin: 10/24/17 10:00 Dose: Not Given Mupirocin (Bactroban Ointment) 0 gm TOP BID [facility] Pantoprazole Sodium (Protonix Ec Tab) 40 mg PO DAILY [facility] Last Admin: 10/24/17 10:00 Dose: Not Given Primidone (Mysoline) 50 mg PO BID [facility] Last Admin: 10/24/17 10:00 Dose: Not Given Risperidone (Risperdal Tab) 1 mg PO [facility] PRN Reason: Protocol Results - Vital Signs Recent Vital Signs: Last Vital Signs Temp 100.7 F H 10/24/17 07:59 Pulse 84 10/24/17 07:59 Resp 20 10/24/17 07:59 BP 140/71 10/24/17 07:59 Pulse Ox 96 10/24/17 07:59 - Labs Result Diagrams: 10/24/17 10:25 10/24/17 10:25 Labs: Laboratory Results - last 24 hr 10/23/17 10/24/17 10/24/17 14:41 10:25 10:25 WBC 13.3 H RBC 3.44 L Hgb 8.8 L Hct 28.3 L MCV 82.3 MCH 25.6 MCHC 31.1 RDW 19.6 H Plt Count 406 MPV 8.7 pO2 58 H VBG pH 7.35 VBG pCO2 48.0 VBG HCO3 26.5 VBG Total CO2 28.0 VBG O2 Sat (Calc) 92.1 H VBG Base Excess 0.3 VBG Potassium 3.7 Sodium 146.0 148 Chloride 114.0 H 111 H Glucose 122 H Lactate 1.7 FiO2 21.0 Potassium 3.6 Carbon Dioxide 26 Anion Gap 15 BUN 18 Creatinine 1.0 Est GFR ( Amer) > 60 Est GFR (Non-Af Amer) > 60 Random Glucose 145 H Calcium 9.4 Total Bilirubin 0.7 AST 63 H ALT 49 Alkaline Phosphatase 100 Total Protein 6.8 Albumin 3.2 Globulin 3.6 Albumin/Globulin Ratio 0.9 L Venous Blood Potassium 3.7 Attending/Attestation - Attestation I have personally seen and examined this patient.: Yes I have fully participated in the care of the patient.: Yes I have reviewed all pertinent clinical information: Yes
--- NOTE | 2017-10-24 13:25 | CP.PCM.CON ---
History of Present Illness - History of Present Illness History of Present Illness: 82 year old male with PMH of dementia and bedbound, history of frontal lobe meningioma, chronic ulcers on the sacral and inner thigh areas, HTN, S/P right knee surgery was brought in to [facility] because worsening problems with swallowing as well as decrease in appetite and some lethargy. There was no note of loss of consciousness, no convulsions, no diarrhea, no vomiting. While admitted, he was noted to have fevers, and blood cx are now showing gram negative bacilli. Infectious diseases consult is requested to further evaluate and manage. Review of Systems - Review of Systems Systems not reviewed;Unavailable: Dementia Past Patient History - Infectious Disease Hx of Infectious Diseases: None - Tetanus Immunizations Tetanus Immunization: Unknown - Past Social History Smoking Status: Never Smoked - CARDIAC Hx Cardiac Disorders: Yes Hx Hypertension: Yes - PULMONARY Hx Respiratory Disorders: No - NEUROLOGICAL Hx Neurological Disorder: Yes (near syncope) Hx Alzheimer's Disease: Yes Hx Dementia: Yes Other/Comment: frontal lobe mass 01/21/15 1cm meningioma, left side weakness, ams - HEENT Hx HEENT Problems: No - RENAL Hx Chronic Kidney Disease: No - ENDOCRINE/METABOLIC Hx Endocrine Disorders: No - HEMATOLOGICAL/ONCOLOGICAL Hx Anemia: Yes - INTEGUMENTARY Hx Dermatological Problems: Yes Other/Comment: multiple b/l gleuteus, back of left thigh, penis and back of r leg mascerated skin redness skin tears see initial wound care and skin assesment , skin discolorations b/l lower legs - MUSCULOSKELETAL/RHEUMATOLOGICAL Hx Falls: No - GASTROINTESTINAL Hx Gastrointestinal Disorders: No - GENITOURINARY/GYNECOLOGICAL Hx Incontinence: Yes (urine and stool) - PSYCHIATRIC Hx Psychophysiologic Disorder: Yes Hx Depression: Yes Hx Substance Use: No - SURGICAL HISTORY Hx Orthopedic Surgery: Yes (rt knee) - ANESTHESIA Hx Anesthesia Reactions: No Hx Malignant Hyperthermia: No Meds Allergies/Adverse Reactions: Allergies Allergy/AdvReac Type Severity Reaction Status Date / Time No Known Allergies Allergy Verified 10/23/17 10:22 - Medications Medications: Current Medications Amlodipine Besylate (Norvasc) 5 mg PO DAILY [facility] Last Admin: 10/24/17 10:00 Dose: Not Given Donepezil HCl (Aricept) 10 mg PO [facility] Dextrose/Sodium Chloride (Dextrose 5%/0.45% Ns 1000 Ml) 1,000 mls @ 75 mls/hr IV .[id number] [facility] Last Admin: 10/24/17 06:11 Dose: 75 mls/hr Meropenem (Merrem Iv 1 Gm Premix) 50 mls @ 100 mls/hr IVPB Q8 [facility] PRN Reason: Protocol Lisinopril (Zestril) 40 mg PO DAILY [facility] Last Admin: 10/24/17 10:00 Dose: Not Given Pantoprazole Sodium (Protonix Ec Tab) 40 mg PO DAILY [facility] Last Admin: 10/24/17 10:00 Dose: Not Given Primidone (Mysoline) 50 mg PO BID [facility] Last Admin: 10/24/17 10:00 Dose: Not Given Risperidone (Risperdal Tab) 1 mg PO HS [facility] PRN Reason: Protocol Physical Exam - Constitutional Appears: Chronically Ill - Head Exam Head Exam: NORMAL INSPECTION - Neck Exam Neck exam: Negative for: Meningismus - Respiratory Exam Respiratory Exam: Decreased Breath Sounds - Cardiovascular Exam Cardiovascular Exam: +S1, +S2 - GI/Abdominal Exam GI & Abdominal Exam: Soft. absent: Tenderness - Extremities Exam Additional comments: decubitus ulcers noted on sacral area and inner thighs Results - Vital Signs Recent Vital Signs: Last Vital Signs Temp 100.7 F H 10/24/17 07:59 Pulse 84 10/24/17 07:59 Resp 20 10/24/17 07:59 BP 140/71 10/24/17 07:59 Pulse Ox 96 10/24/17 07:59 - Labs Result Diagrams: 10/24/17 10:25 10/24/17 10:25 Labs: Laboratory Results - last 24 hr 10/23/17 10/23/17 10/24/17 12:13 14:41 10:25 WBC 13.3 H RBC 3.44 L Hgb 8.8 L Hct 28.3 L MCV 82.3 MCH 25.6 MCHC 31.1 RDW 19.6 H Plt Count 406 MPV 8.7 pO2 58 H VBG pH 7.35 VBG pCO2 48.0 VBG HCO3 26.5 VBG Total CO2 28.0 VBG O2 Sat (Calc) 92.1 H VBG Base Excess 0.3 VBG Potassium 3.7 Sodium 146.0 Chloride 114.0 H Glucose 122 H Lactate 1.7 FiO2 21.0 Venous Blood Potassium 3.7 Urine Color Dark yellow Urine Appearance Clear Urine pH 6.0 Ur Specific [place] 1.025 Urine Protein Trace H Urine Glucose (UA) Negative Urine Ketones Negative Urine Blood Negative Urine Nitrate Positive H Urine Bilirubin Small H Urine Urobilinogen 2.0 H Ur Leukocyte Esterase Negative Urine RBC Negative Urine WBC 0 - 2 Ur Epithelial Cells 0 - 2 Urine Bacteria Small Assessment & Plan - Assessment and Plan (Free Text) Plan: Assessment sepsis due to gram negative bacilli bacteremia, R/O intra-abdominal infection, R /O UTI dementia and bedbound history of frontal lobe meningioma chronic ulcers on the sacral and inner thigh areas HTN S/P right knee surgery Plan Started the patient on Merrem pending identification and sensitivities of the gram negative bacilli in the blood; will repeat blood cx tomorrow; follow up CT A/P and urine cultures and wound cx will monitor clinically overall prognosis is poor
--- NOTE | 2017-10-24 15:12 | HP ---
DATE: 10/24/2017 HISTORY OF PRESENT ILLNESS: This is an 82-year-old black male admitted from home with advanced Alzheimer's, not eating, not drinking, not communicating anymore. The patient is nonambulatory, came in with contractures of both knees, right heel ecchymosis. The patient is awake, but he has minimal response to verbal stimuli and does complain of pain on palpation of his knees. He has bilateral swelling in knees. There is also eschar on the right knee. PHYSICAL EXAMINATION: CHEST: Clear to auscultation. HEART: Regular sinus rhythm. EXTREMITIES: No cyanosis, clubbing, or edema. Large left heel ecchymotic lesion. We will have Podiatry see him. The patient has been hydrating. He did fail his swallowing test. On admission, vital signs are stable. He just has a low grade fever of 100.7 and a white count of 15,200. We will do a septic workup, some prophylactic antibiotics, and social service consult for possible skilled nursing placement when he is stable and Podiatry consult. Kenny Joseph MD
--- NOTE | 2017-10-24 16:20 | CT ---
PROCEDURE: CT Abdomen and Pelvis without intravenous contrast HISTORY: rule out intra-abdominal infection COMPARISON: 05/09/2016 CT abdomen and pelvis TECHNIQUE: Unenhanced study. Neither oral nor intravenous contrast administered. Sensitivity and specificity for acute inflammatory processes limited by the absence of oral and intravenous contrast. Total exam DLP = 951.50 mGy-cm. This CT exam was performed using one or more of the following dose reduction techniques: Automated exposure control, adjustment of the mA and/or kV according to patient size, and/or use of iterative reconstruction technique. FINDINGS: LOWER THORAX: Unremarkable. LIVER: Unremarkable. No gross lesion or ductal dilatation. GALLBLADDER AND BILE DUCTS: Unremarkable. PANCREAS: Unremarkable. No gross lesion or ductal dilatation. SPLEEN: Unremarkable. ADRENALS: Unremarkable. No mass. KIDNEYS AND URETERS: Unremarkable. No hydronephrosis. No solid mass. Point VASCULATURE: Unremarkable. No aortic aneurysm. BOWEL: Constipation/fecal impaction without mechanical obstruction. APPENDIX: Unremarkable. Normal appendix. PERITONEUM: Unremarkable. No free fluid. No free air. LYMPH NODES: Unremarkable. No enlarged lymph nodes. BLADDER: Unremarkable.Thickened bladder wall. The bladder is decompressed hind indwelling Apple catheter. Chaney next REPRODUCTIVE: Unremarkable. BONES: No acute fracture. OTHER FINDINGS: None. IMPRESSION: No significant or acute findings to account for/ related to the clinical presentation. Additional benign and/or incidental findings described above.
--- NOTE | 2017-10-24 18:39 | RAD ---
PROCEDURE: Left Foot Radiographs. HISTORY: left plantar heel hematoma COMPARISON: None. FINDINGS: BONES: No displaced fracture is appreciated or destructive bony lesion although there is poor definition of the cortex throughout the midfoot may be a function of disuse. Clinically correlate further. Advanced degenerative changes seen the 1st metatarsal phalangeal joint with a [id number] hallux valgus deformity with lesser degenerative changes seen throughout the remaining joints of the left foot diffusely. Proximal phalanx of the great toe subluxed laterally mildly. JOINTS: As above. SOFT TISSUES: As above. OTHER FINDINGS: None. IMPRESSION: No definite displaced fracture appreciable. Disuse osteopenia is suggests at the midfoot with the articular cortices are poorly defined. Degenerative joint changes seen diffusely but are seen worst at the 1st metatarsophalangeal joint are minimal subluxation of the great toe is seen laterally. [id number] hallux valgus deformity.
[2017-10-25] MEDS: Meropenem IV 1 gm in NS 50 ML IVPB SCH ×3 (05:02→21:29)
[2017-10-25 06:55] LABS: HEMOGLOBIN 8.5 g/dL (14.0-18.0); MEAN CORPUSCULAR HEMOGLOBIN 25.9 pg (25.0-35.0); MEAN CORPUSCULAR HGB CONC 31.6 g/dl (31.0-37.0); MEAN PLATELET VOLUME 8.7 fl (7.0-11.0); RBC 3.28 10^6/uL (3.5-6.1); RED CELL DISTRIBUTION WIDTH 19.4 % (11.5-14.5); WHITE BLOOD COUNT 13.7 10^3/ul (4.5-11.0)
[2017-10-25 07:18] LABS: ALB/GLOB RATIO 0.9 (1.1-1.8); ALT/SGPT 56 U/L (7-56); AST/SGOT 61 U/L (17-59); BLOOD UREA NITROGEN 17 mg/dL (7-21); GFR AFRICAN-AMERICAN > 60; GFR NON-AFRICAN AMERICAN > 60
[2017-10-25] MEDS: Dextrose 5%/0.45% NS 1,000 ML IV SCH ×2 (08:41→21:28)
--- NOTE | 2017-10-25 08:50 | PN ---
DATE: 10/25/2017 SUBJECTIVE: An 82-year-old male with dementia seen at bedside for continued evaluation and management of left heel hematoma. The patient is combative upon dressing change and does not respond to verbal commands. The patient's vital signs revealed temperature of 100.3, pulse rate of 95, blood pressure of 106/63, respiratory rate of 20. Laboratory findings reveal white count of 13.7, hemoglobin of 8.5, hematocrit of 26.9, platelet count of 341. X-rays of the left foot reveal no radiographic evidence of cortical destruction to suggest osteomyelitis of the left heel. OBJECTIVE: Nonpalpable posterior tibial pulse and weakly palpable dorsalis pedis pulse noted bilaterally. Capillary filling time is delayed x10. There is noted to be no lower extremity edema. The patient does not respond to his sharp-dull stimuli. There is noted to be a deep tissue injury superficial hematoma noted on the plantar medial aspect of the left heel. There is no drainage, no purulence. This wound does not probe to tendon or bone. There is no malodor. The wound shows no cellulitic periphery or any signs of ascending cellulitis. The patient is noted to be in a contracted position and will require Multi Podus boots to offload both heels. ASSESSMENT: Deep tissue injury/hematoma on the left heel. PLAN: The patient's wound was cleansed with normal sterile saline. We will apply Bactroban and an Optifoam and continue to offload at all times using the formal type foam Multi Podus boots. The patient will be seen and followed daily. Yoel Abrams DPM
[2017-10-25] MEDS: Pantoprazole 40 mg EC Tab PO SCH (09:13)
--- NOTE | 2017-10-25 12:25 | CP.PCM.PN ---
Subjective - Date & Time of Evaluation Date of Evaluation: 10/25/17 Time of Evaluation: 10:50 - Subjective Subjective: Not in distress but agitated at times, still with low grade fevers. Objective - Vital Signs/Intake and Output Vital Signs (last 24 hours): Temp Pulse Resp BP Pulse Ox 100.3 F H 95 H 20 106/63 98 10/25/17 07:00 10/25/17 07:00 10/25/17 07:00 10/25/17 07:00 10/25/17 07:00 Intake and Output: 10/25/17 10/25/17 06:59 18:59 Intake Total 480 Output Total 750 Balance -270 - Medications Medications: Current Medications Acetaminophen (Tylenol 650 Mg Supp) 650 mg RC Q6H PRN PRN Reason: Fever >100.4 F Last Admin: 10/25/17 06:18 Dose: 650 mg Amlodipine Besylate (Norvasc) 5 mg PO DAILY [facility] Last Admin: 10/25/17 09:13 Dose: 5 mg Donepezil HCl (Aricept) 10 mg PO HS [facility] Last Admin: 10/24/17 21:01 Dose: 10 mg Dextrose/Sodium Chloride (Dextrose 5%/0.45% Ns 1000 Ml) 1,000 mls @ 75 mls/hr IV .[id number] [facility] Last Admin: 10/25/17 08:41 Dose: 75 mls/hr Meropenem (Merrem Iv 1 Gm Premix) 50 mls @ 100 mls/hr IVPB Q8 [facility] PRN Reason: Protocol Last Admin: 10/25/17 05:02 Dose: 100 mls/hr Lisinopril (Zestril) 40 mg PO DAILY [facility] Last Admin: 10/25/17 09:14 Dose: 40 mg Mupirocin (Bactroban Ointment) 0 gm TOP BID [facility] Last Admin: 10/25/17 09:07 Dose: 1 applic Pantoprazole Sodium (Protonix Ec Tab) 40 mg PO DAILY [facility] Last Admin: 10/25/17 09:13 Dose: 40 mg Primidone (Mysoline) 50 mg PO BID [facility] Last Admin: 10/25/17 09:13 Dose: 50 mg Risperidone (Risperdal Tab) 1 mg PO HS [facility] PRN Reason: Protocol Last Admin: 10/24/17 21:01 Dose: 1 mg - Labs Labs: 10/25/17 06:30 10/25/17 06:30 - Constitutional Appears: Chronically Ill - Head Exam Head Exam: NORMAL INSPECTION - Neck Exam Neck Exam: absent: Meningismus - Respiratory Exam Respiratory Exam: Decreased Breath Sounds - Cardiovascular Exam Cardiovascular Exam: +S1, +S2 - GI/Abdominal Exam GI & Abdominal Exam: Soft. absent: Tenderness Assessment and Plan - Assessment and Plan (Free Text) Plan: Assessment sepsis due to gram negative bacilli bacteremia, R/O UTI dementia and bedbound history of frontal lobe meningioma chronic ulcers on the sacral and inner thigh areas HTN S/P right knee surgery Plan continue Merrem pending identification and sensitivities of the gram negative bacilli in the blood; will repeat blood cx today; CT A/P does not show acute pathology ; follow up urine cultures and wound cx will order 2D echo will continue to monitor clinically overall prognosis is poor
[2017-10-25 15:02] LABS: IRON 14 ug/dL (45-180)
[2017-10-25 15:11] LABS: % IRON SATURATION 8 % (20-55); TOTAL IRON BINDING CAPACITY 192 ug/dL (261-462)
--- NOTE | 2017-10-25 18:09 | PN ---
DATE: 10/25/2017 SUBJECTIVE: An 82-year-old black male admitted to the hospital with dementia, change in mental status, confusion, disorientation, sepsis, fever, elevated white count, gram-positive rods in blood x2. White count 13,700. The patient's temperature is 100.3. He is on IV antibiotics by Infectious Disease. Hemoglobin is 8.5, which dropped from approximately 11. Stool for occult blood, B12, iron, TIBC will be ordered and repeat H and H. The patient is in bed. He opens his eyes to verbal stimuli and tactile stimuli, but he is not responsive. He has no purposeful speech or movements seen. He has knees to his chest. He has a heel ulcer, was seen by Dr. Abrams . He also has multiple ecchymotic and early decubiti on his knees and his back and he is getting local wound care, IV antibiotics. He goes on failing his swallowing examination, so we are hydrating him at this point, but we will repeat his swallowing evaluation post treatment of his sepsis. Kenny Joseph MD
[2017-10-26] MEDS: Meropenem IV 1 gm in NS 50 ML IVPB SCH ×3 (05:32→21:50)
[2017-10-26] MEDS: Pantoprazole 40 mg EC Tab PO SCH (09:42)
--- NOTE | 2017-10-26 11:52 | CP.PCM.PN ---
<Audrey Hill - Last Filed: 10/26/17 11:49> Subjective - Date & Time of Evaluation Date of Evaluation: 10/26/17 Time of Evaluation: 11:49 - Subjective Subjective: Podiatry Consult note: Dr. Abrams 82 year old male with extensive PMHx was seen and evaluated at bedside for left heel hematoma. Patient appears to be alert but does not respond to the verbal commands. Unable to obtain complete history of the patient at this time. Objective - Vital Signs/Intake and Output Vital Signs (last 24 hours): Temp Pulse Resp BP Pulse Ox 98.8 F 92 H 18 137/63 97 10/26/17 06:00 10/26/17 09:42 10/26/17 08:00 10/26/17 09:42 10/26/17 08:00 Intake and Output: 10/26/17 10/26/17 06:59 18:59 Intake Total 480 240 Output Total 400 Balance 80 240 - Medications Medications: Current Medications Acetaminophen (Tylenol 650 Mg Supp) 650 mg RC Q6H PRN PRN Reason: Fever >100.4 F Last Admin: 10/25/17 15:40 Dose: 650 mg Amlodipine Besylate (Norvasc) 5 mg PO DAILY [facility] Last Admin: 10/26/17 09:42 Dose: 5 mg Donepezil HCl (Aricept) 10 mg PO HS [facility] Last Admin: 10/25/17 21:28 Dose: 10 mg Dextrose/Sodium Chloride (Dextrose 5%/0.45% Ns 1000 Ml) 1,000 mls @ 75 mls/hr IV .[id number] [facility] Last Admin: 10/25/17 21:28 Dose: 75 mls/hr Meropenem (Merrem Iv 1 Gm Premix) 50 mls @ 100 mls/hr IVPB Q8 [facility] PRN Reason: Protocol Last Admin: 10/26/17 05:32 Dose: 100 mls/hr Lisinopril (Zestril) 40 mg PO DAILY [facility] Last Admin: 10/26/17 09:42 Dose: 40 mg Mupirocin (Bactroban Ointment) 0 gm TOP BID [facility] Last Admin: 10/26/17 09:43 Dose: 1 applic Pantoprazole Sodium (Protonix Ec Tab) 40 mg PO DAILY [facility] Last Admin: 10/26/17 09:42 Dose: 40 mg Primidone (Mysoline) 50 mg PO BID [facility] Last Admin: 10/26/17 09:42 Dose: 50 mg Risperidone (Risperdal Tab) 1 mg PO HS [facility] PRN Reason: Protocol Last Admin: 10/25/17 21:30 Dose: 1 mg - Labs Labs: 10/25/17 06:30 10/25/17 06:30 - Constitutional Appears: Well, Non-toxic, No Acute Distress - Extremities Exam Additional comments: LLE focused exam: VASC: DP/PT pulses are faintly palpable 1/4, Cap refill time: < 3 sec to all digits, Temp gradient warm to cool from proximal to distal, no pitting or non- pitting edema noted DERM: deep tissue injury/superficial hematoma noted on the plantar aspect of the left heel, no open lesions, no erythema, no clinical suspicion of active infection at this time NEURO: unable to obtain ORTHO: Patient is in contracted position in bed - pain on ROM of the LE, no pain on palpation of the plantar heel - Neurological Exam Neurological Exam: Awake - Psychiatric Exam Psychiatric exam: Normal Affect, Normal Mood Assessment and Plan - Assessment and Plan (Free Text) Assessment: 82 year old male evaluated at bedside for left heel deep tissue injury Plan: Patient seen and evaluated at bedside discussed in detail with attending Dr. Abrams Labs, vitals, charts reviewed , WBC 13.7 No source of infection from bilateral LE - plantar heel deep tissue injury appears stable Dressing applied using bactroban, optifoam x rays of left foot reveal no evidence of OM Multipodus boots ordered - to be worn in bed at all times Will continue to follow patient while in-house <Yoel Abrams - Last Filed: 10/28/17 11:12> Objective - Vital Signs/Intake and Output Vital Signs (last 24 hours): Temp Pulse Resp BP Pulse Ox 99.7 F H 83 20 125/69 98 10/28/17 08:19 10/28/17 10:36 10/28/17 08:19 10/28/17 10:36 10/28/17 08:19 Intake and Output: 10/28/17 10/28/17 06:59 18:59 Intake Total 0 Output Total 250 325 Balance -250 -325 - Medications Medications: Current Medications Acetaminophen (Tylenol 650 Mg Supp) 650 mg RC Q6H PRN PRN Reason: Fever >100.4 F Last Admin: 10/25/17 15:40 Dose: 650 mg Amlodipine Besylate (Norvasc) 5 mg PO DAILY [facility] Last Admin: 10/28/17 10:36 Dose: 5 mg Donepezil HCl (Aricept) 10 mg PO HS [facility] Last Admin: 10/27/17 22:07 Dose: 10 mg Meropenem (Merrem Iv 1 Gm Premix) 50 mls @ 100 mls/hr IVPB Q8 [facility] PRN Reason: Protocol Last Admin: 10/28/17 06:01 Dose: 100 mls/hr Lisinopril (Zestril) 40 mg PO DAILY [facility] Last Admin: 10/28/17 10:38 Dose: 40 mg Mupirocin (Bactroban Ointment) 0 gm TOP BID [facility] Last Admin: 10/27/17 17:32 Dose: 1 applic Pantoprazole Sodium (Protonix Ec Tab) 40 mg PO DAILY [facility] Last Admin: 10/28/17 10:37 Dose: 40 mg Primidone (Mysoline) 50 mg PO BID [facility] Last Admin: 10/28/17 10:37 Dose: 50 mg Risperidone (Risperdal Tab) 1 mg PO HS [facility] PRN Reason: Protocol Last Admin: 10/27/17 22:07 Dose: 1 mg - Labs Labs: 10/28/17 06:00 10/28/17 06:00 Attending/Attestation - Attestation I have personally seen and examined this patient.: Yes I have fully participated in the care of the patient.: Yes I have reviewed all pertinent clinical information, including history, physical exam and plan: Yes
--- NOTE | 2017-10-26 13:09 | CP.PCM.PN ---
Subjective - Date & Time of Evaluation Date of Evaluation: 10/26/17 Time of Evaluation: 12:15 - Subjective Subjective: Patient is being fed and is eating well, more alert today, no fevers, not in distress, not agitated. Objective - Vital Signs/Intake and Output Vital Signs (last 24 hours): Temp Pulse Resp BP Pulse Ox 98.8 F 92 H 18 137/63 97 10/26/17 06:00 10/26/17 09:42 10/26/17 08:00 10/26/17 09:42 10/26/17 08:00 Intake and Output: 10/26/17 10/26/17 06:59 18:59 Intake Total 480 240 Output Total 400 Balance 80 240 - Medications Medications: Current Medications Acetaminophen (Tylenol 650 Mg Supp) 650 mg RC Q6H PRN PRN Reason: Fever >100.4 F Last Admin: 10/25/17 15:40 Dose: 650 mg Amlodipine Besylate (Norvasc) 5 mg PO DAILY [facility] Last Admin: 10/26/17 09:42 Dose: 5 mg Donepezil HCl (Aricept) 10 mg PO HS [facility] Last Admin: 10/25/17 21:28 Dose: 10 mg Dextrose/Sodium Chloride (Dextrose 5%/0.45% Ns 1000 Ml) 1,000 mls @ 75 mls/hr IV .[id number] [facility] Last Admin: 10/25/17 21:28 Dose: 75 mls/hr Meropenem (Merrem Iv 1 Gm Premix) 50 mls @ 100 mls/hr IVPB Q8 [facility] PRN Reason: Protocol Last Admin: 10/26/17 05:32 Dose: 100 mls/hr Lisinopril (Zestril) 40 mg PO DAILY [facility] Last Admin: 10/26/17 09:42 Dose: 40 mg Mupirocin (Bactroban Ointment) 0 gm TOP BID [facility] Last Admin: 10/26/17 09:43 Dose: 1 applic Pantoprazole Sodium (Protonix Ec Tab) 40 mg PO DAILY [facility] Last Admin: 10/26/17 09:42 Dose: 40 mg Primidone (Mysoline) 50 mg PO BID [facility] Last Admin: 10/26/17 09:42 Dose: 50 mg Risperidone (Risperdal Tab) 1 mg PO HS [facility] PRN Reason: Protocol Last Admin: 10/25/17 21:30 Dose: 1 mg - Labs Labs: 10/25/17 06:30 10/25/17 06:30 - Constitutional Appears: Non-toxic, Chronically Ill - Head Exam Head Exam: NORMAL INSPECTION - Neck Exam Neck Exam: absent: Meningismus - Respiratory Exam Respiratory Exam: Decreased Breath Sounds - Cardiovascular Exam Cardiovascular Exam: +S1, +S2 - GI/Abdominal Exam GI & Abdominal Exam: Soft. absent: Tenderness Assessment and Plan - Assessment and Plan (Free Text) Plan: Assessment sepsis due to Proteus bacteremia, R/O sacral area skin and skin structure infection dementia and bedbound history of frontal lobe meningioma chronic ulcers on the sacral and inner thigh areas HTN S/P right knee surgery Plan continue Merrem pending identification and sensitivities of the gram negative bacilli in the wound cx; repeat blood cx are negativeCT A/P does not show acute pathology ; urine cultures show contamination follow up 2D echo results will continue to monitor clinically overall prognosis is poor
[2017-10-26] MEDS: Dextrose 5%/0.45% NS 1,000 ML IV SCH (17:16)
[2017-10-27] MEDS: Meropenem IV 1 gm in NS 50 ML IVPB SCH ×3 (05:30→22:07)
[2017-10-27] MEDS: Dextrose 5%/0.45% NS 1,000 ML IV SCH ×2 (05:32→14:07)
[2017-10-27] MEDS: Pantoprazole 40 mg EC Tab PO SCH (09:05)
--- NOTE | 2017-10-27 09:44 | PN ---
DATE: 10/26/2017 SUBJECTIVE: This is an 81-year-old black male admitted to the hospital with sepsis, Gram positive rods growing in the blood, urinary tract infection, healed decubitus, new eschar, advanced dementia. The patient is on IV antibiotics. OBJECTIVE: VITAL SIGNS: He is afebrile today for the first day. LABORATORY DATA: White count is 13.7. BUN and creatinine are stable. Potassium is still 3.3. He is more awake and alert and oriented x3. We will do a evaluation in the morning. PLAN: To continue IV antibiotics, wound therapy and physical therapy. Kenny Joseph MD
[2017-10-27 10:39] LABS: HEMOGLOBIN 7.4 g/dL (14.0-18.0); MEAN CELL VOLUME 81.9 fl (80.0-105.0); MEAN CORPUSCULAR HEMOGLOBIN 26.3 pg (25.0-35.0); MEAN CORPUSCULAR HGB CONC 32.2 g/dl (31.0-37.0); MEAN PLATELET VOLUME 8.4 fl (7.0-11.0); RBC 2.81 10^6/uL (3.5-6.1); RED CELL DISTRIBUTION WIDTH 19.1 % (11.5-14.5)
[2017-10-27 10:57] LABS: ALB/GLOB RATIO 0.8 (1.1-1.8); ALBUMIN 2.5 g/dL (3.0-4.8); ALT/SGPT 81 U/L (7-56); AST/SGOT 86 U/L (17-59); BLOOD UREA NITROGEN 12 mg/dL (7-21); CALCIUM 8.5 mg/dL (8.4-10.5); GFR AFRICAN-AMERICAN > 60; GFR NON-AFRICAN AMERICAN > 60
--- NOTE | 2017-10-27 13:17 | PN ---
DATE: 10/27/2017 An 82-year-old black male admitted to the hospital with sepsis, positive Proteus in the urine and the blood, change in mental status, confusion, disorientation, elevated white count, elevated fever, decubitus heel ulcerations, advanced dementia and dysphagia. The patient is more awake and alert after IV antibiotics. He is afebrile. Temperature is 99.1. Today's white count is 15.7. He will have a repeat swallowing evaluation to find out if he has increased disability to swallow. Otherwise, vital signs are stable. We are going to continue IV antibiotics and repeat the swallowing evaluation. Continue hydration until he can be alimented orally. Kenny Joseph MD
--- NOTE | 2017-10-27 15:28 | CP.PCM.PN ---
Subjective - Date & Time of Evaluation Date of Evaluation: 10/27/17 Time of Evaluation: 15:25 - Subjective Subjective: Podiatry Consult note: Dr. Abrams 82 year old male patient seen and evaluated at bedside for left heel hematoma. Patient appears to be alert but does not respond to the verbal commands. Appears in NAD. Objective - Vital Signs/Intake and Output Vital Signs (last 24 hours): Temp Pulse Resp BP Pulse Ox 98.7 F 82 18 142/78 96 10/27/17 15:08 10/27/17 15:08 10/27/17 15:08 10/27/17 15:08 10/27/17 08:09 Intake and Output: 10/27/17 10/27/17 06:59 18:59 Intake Total 2400 760 Output Total 800 350 Balance 1600 410 - Medications Medications: Current Medications Acetaminophen (Tylenol 650 Mg Supp) 650 mg RC Q6H PRN PRN Reason: Fever >100.4 F Last Admin: 10/25/17 15:40 Dose: 650 mg Amlodipine Besylate (Norvasc) 5 mg PO DAILY [facility] Last Admin: 10/27/17 09:05 Dose: 5 mg Donepezil HCl (Aricept) 10 mg PO HS [facility] Last Admin: 10/26/17 21:50 Dose: 10 mg Dextrose/Sodium Chloride (Dextrose 5%/0.45% Ns 1000 Ml) 1,000 mls @ 75 mls/hr IV .[id number] [facility] Last Admin: 10/27/17 14:07 Dose: 75 mls/hr Meropenem (Merrem Iv 1 Gm Premix) 50 mls @ 100 mls/hr IVPB Q8 [facility] PRN Reason: Protocol Last Admin: 10/27/17 14:05 Dose: 100 mls/hr Lisinopril (Zestril) 40 mg PO DAILY [facility] Last Admin: 10/27/17 09:05 Dose: 40 mg Mupirocin (Bactroban Ointment) 0 gm TOP BID [facility] Last Admin: 10/27/17 09:04 Dose: 1 applic Pantoprazole Sodium (Protonix Ec Tab) 40 mg PO DAILY [facility] Last Admin: 10/27/17 09:05 Dose: 40 mg Primidone (Mysoline) 50 mg PO BID [facility] Last Admin: 10/27/17 09:05 Dose: 50 mg Risperidone (Risperdal Tab) 1 mg PO HS [facility] PRN Reason: Protocol Last Admin: 10/26/17 21:51 Dose: 1 mg - Labs Labs: 10/27/17 10:30 10/27/17 10:30 - Constitutional Appears: Well, Non-toxic, No Acute Distress - Extremities Exam Additional comments: LLE focused exam: VASC: DP/PT pulses are faintly palpable 1/4, Cap refill time: < 3 sec to all digits, Temp gradient warm to cool from proximal to distal, no pitting or non- pitting edema noted DERM: deep tissue injury/superficial hematoma noted on the plantar aspect of the left heel, no open lesions, no erythema, no clinical suspicion of active infection at this time NEURO: unable to obtain ORTHO: Patient is in contracted position in bed - pain on ROM of the LE, no pain on palpation of the plantar heel - Neurological Exam Neurological Exam: Alert, Awake, Oriented x3 - Psychiatric Exam Psychiatric exam: Normal Affect, Normal Mood Assessment and Plan - Assessment and Plan (Free Text) Assessment: 82 year old male evaluated at bedside for left heel deep tissue injury Plan: Patient seen and evaluated at bedside with attending Dr. Rodriguez Labs, vitals, charts reviewed, WBC 11.0 No source of infection from bilateral LE - plantar heel deep tissue injury appears stable X rays of left foot reveal no evidence of OM Dressing applied using bactroban, optifoam Multipodus boots to be worn in bed at all times Will continue to follow patient while in-house
--- NOTE | 2017-10-27 18:36 | CP.PCM.PN ---
Subjective - Date & Time of Evaluation Date of Evaluation: 10/27/17 Time of Evaluation: 10:40 - Subjective Subjective: Comfortable, no fevers, not in distress, afebrile. Objective - Vital Signs/Intake and Output Vital Signs (last 24 hours): Temp Pulse Resp BP Pulse Ox 99.1 F 76 18 128/63 96 10/27/17 08:09 10/27/17 08:09 10/27/17 08:09 10/27/17 08:09 10/27/17 08:09 Intake and Output: 10/27/17 10/27/17 06:59 18:59 Intake Total 2400 Output Total 800 Balance 1600 - Medications Medications: Current Medications Acetaminophen (Tylenol 650 Mg Supp) 650 mg RC Q6H PRN PRN Reason: Fever >100.4 F Last Admin: 10/25/17 15:40 Dose: 650 mg Amlodipine Besylate (Norvasc) 5 mg PO DAILY [facility] Last Admin: 10/27/17 09:05 Dose: 5 mg Donepezil HCl (Aricept) 10 mg PO HS [facility] Last Admin: 10/26/17 21:50 Dose: 10 mg Dextrose/Sodium Chloride (Dextrose 5%/0.45% Ns 1000 Ml) 1,000 mls @ 75 mls/hr IV .[id number] [facility] Last Admin: 10/27/17 05:32 Dose: 75 mls/hr Meropenem (Merrem Iv 1 Gm Premix) 50 mls @ 100 mls/hr IVPB Q8 [facility] PRN Reason: Protocol Last Admin: 10/27/17 05:30 Dose: 100 mls/hr Lisinopril (Zestril) 40 mg PO DAILY [facility] Last Admin: 10/27/17 09:05 Dose: 40 mg Mupirocin (Bactroban Ointment) 0 gm TOP BID [facility] Last Admin: 10/27/17 09:04 Dose: 1 applic Pantoprazole Sodium (Protonix Ec Tab) 40 mg PO DAILY [facility] Last Admin: 10/27/17 09:05 Dose: 40 mg Primidone (Mysoline) 50 mg PO BID [facility] Last Admin: 10/27/17 09:05 Dose: 50 mg Risperidone (Risperdal Tab) 1 mg PO HS [facility] PRN Reason: Protocol Last Admin: 10/26/17 21:51 Dose: 1 mg - Labs Labs: 10/25/17 06:30 10/25/17 06:30 - Constitutional Appears: Chronically Ill - Head Exam Head Exam: NORMAL INSPECTION - ENT Exam ENT Exam: Mucous Membranes Moist - Neck Exam Neck Exam: absent: Meningismus - Respiratory Exam Respiratory Exam: Decreased Breath Sounds - Cardiovascular Exam Cardiovascular Exam: +S1, +S2 - GI/Abdominal Exam GI & Abdominal Exam: Soft. absent: Tenderness Assessment and Plan - Assessment and Plan (Free Text) Plan: Assessment sepsis due to Proteus bacteremia, R/O sacral area skin and skin structure infection dementia and bedbound history of frontal lobe meningioma chronic ulcers on the sacral and inner thigh areas HTN S/P right knee surgery Plan continue Merrem; repeat blood cx are negative; CT A/P does not show acute pathology ; urine cultures show contamination follow up 2D echo results will check bone scan to rule out sacral osteomyelitis will continue to monitor clinically overall prognosis is poor
--- NOTE | 2017-10-27 20:08 | CARD ---
APPROVED REPORT EXAM: Two-dimensional and M-mode echocardiogram with Doppler and color Doppler. INDICATION Infection:Rule out subacute bacterial endocarditis 2D DIMENSIONS Left Atrium (2D)4.0 (1.6-4.0cm)IVSd1.4 (0.7-1.1cm) LVDd3.6 (3.9-5.9cm)PWd1.1 (0.7-1.1cm) LVDs2.5 (2.5-4.0cm)FS (%) 30.0 % LVEF (%)58.1 (>50%) M-Mode DIMENSIONS Aortic Root3.40 (2.2-3.7cm)Aortic Cusp Exc.1.50 (1.5-2.0cm) Aortic Valve AoV Peak Wzsxtslm942.0cm/Bebeto Peak GR.10mmHg Mitral Valve MV E Whfkijar78.6cm/sMV A Vodjilmo721.0cm/sE/A ratio0.6 TDI E/Lateral E'0.0E/Medial E'0.0 Tricuspid Valve TR Peak [id number]/sRAP [id number] Peak Gr.28mmHg [id number] LEFT VENTRICLE The left ventricle is normal size. There is borderline concentric left ventricular hypertrophy. The left ventricular function is normal. The left ventricular ejection fraction is within the normal range. There is normal LV segmental wall motion. Transmitral Doppler flow pattern is Grade I-abnormal relaxation pattern. RIGHT VENTRICLE The right ventricle is normal size. There is normal right ventricular wall thickness. The right ventricular systolic function is normal. ATRIA The left atrium size is normal. The right atrium size is normal. AORTIC VALVE The aortic valve is moderately sclerotic. No aortic regurgitation is present. There is no aortic valvular stenosis. MITRAL VALVE The mitral valve is moderately thickened. There is no mitral valve regurgitation noted. There is no mitral valve stenosis. TRICUSPID VALVE There is mild pulmonary hypertension. GREAT VESSELS The aortic root is normal in size. PERICARDIAL EFFUSION There is no pericardial effusion. <Conclusion> The left ventricle is normal size. There is borderline concentric left ventricular hypertrophy. The left ventricular function is normal. The left ventricular ejection fraction is within the normal range. There is normal LV segmental wall motion. Transmitral Doppler flow pattern is Grade I-abnormal relaxation pattern. There is mild pulmonary hypertension. No vegitation seen
[2017-10-28] MEDS: Dextrose 5%/0.45% NS 1,000 ML IV SCH (03:30)
[2017-10-28] MEDS: Meropenem IV 1 gm in NS 50 ML IVPB SCH ×3 (06:01→21:31)
[2017-10-28 06:50] LABS: HEMOGLOBIN 8.4 g/dL (14.0-18.0); MEAN CELL VOLUME 80.3 fl (80.0-105.0); MEAN CORPUSCULAR HEMOGLOBIN 25.8 pg (25.0-35.0); MEAN CORPUSCULAR HGB CONC 32.2 g/dl (31.0-37.0); RBC 3.25 10^6/uL (3.5-6.1); RED CELL DISTRIBUTION WIDTH 18.5 % (11.5-14.5)
[2017-10-28 07:21] LABS: ALB/GLOB RATIO 0.7 (1.1-1.8); ALBUMIN 2.5 g/dL (3.0-4.8); ALT/SGPT 102 U/L (7-56); AST/SGOT 105 U/L (17-59); BLOOD UREA NITROGEN 10 mg/dL (7-21); CALCIUM 8.5 mg/dL (8.4-10.5); GFR AFRICAN-AMERICAN > 60; GFR NON-AFRICAN AMERICAN > 60
[2017-10-28] MEDS: Pantoprazole 40 mg EC Tab PO SCH (10:37)
--- NOTE | 2017-10-28 13:19 | PN ---
DATE: 10/28/2017 SUBJECTIVE: An 82-year-old black male admitted to the hospital with severe advanced dementia, heel decubiti, knee decubiti, sacral decubitus, Gram positive Proteus growing in the blood and in the urine. The patient is on IV antibiotics. He is also severely anemic. He was transfused yesterday at 38.4. He had previously failed swallowing test since he is more awake and alert. IV antibiotics, he is now tolerating swallowing without problem. PHYSICAL EXAMINATION: VITAL SIGNS: Temperature is 98.6, blood pressure 142/62. GENERAL: He is still awake and alert, but confused. He is oriented not to time, person or place. Rest of the physical examination is unchanged. PLAN: To continue finishing the course of IV antibiotics and possible NICKI. Kenny Joseph MD
--- NOTE | 2017-10-28 13:51 | CP.PCM.PN ---
<Radha Mathews - Last Filed: 10/28/17 13:48> Subjective - Date & Time of Evaluation Date of Evaluation: 10/28/17 Time of Evaluation: 13:48 - Subjective Subjective: Podiatry Progress Note: Dr. Abrams 82 year old male patient seen and evaluated at bedside for left heel hematoma. Patient appears alert but responds minimally to verbal questions. Appears in NAD. Does not express any pain in regards to his left foot. Objective - Vital Signs/Intake and Output Vital Signs (last 24 hours): Temp Pulse Resp BP Pulse Ox 99.7 F H 83 20 125/69 98 10/28/17 08:19 10/28/17 10:36 10/28/17 08:19 10/28/17 10:36 10/28/17 08:19 Intake and Output: 10/28/17 10/28/17 06:59 18:59 Intake Total 0 Output Total 250 325 Balance -250 -325 - Medications Medications: Current Medications Acetaminophen (Tylenol 650 Mg Supp) 650 mg RC Q6H PRN PRN Reason: Fever >100.4 F Last Admin: 10/25/17 15:40 Dose: 650 mg Amlodipine Besylate (Norvasc) 5 mg PO DAILY [facility] Last Admin: 10/28/17 10:36 Dose: 5 mg Donepezil HCl (Aricept) 10 mg PO HS [facility] Last Admin: 10/27/17 22:07 Dose: 10 mg Meropenem (Merrem Iv 1 Gm Premix) 50 mls @ 100 mls/hr IVPB Q8 [facility] PRN Reason: Protocol Last Admin: 10/28/17 06:01 Dose: 100 mls/hr Lisinopril (Zestril) 40 mg PO DAILY [facility] Last Admin: 10/28/17 10:38 Dose: 40 mg Mupirocin (Bactroban Ointment) 0 gm TOP BID [facility] Last Admin: 10/27/17 17:32 Dose: 1 applic Pantoprazole Sodium (Protonix Ec Tab) 40 mg PO DAILY [facility] Last Admin: 10/28/17 10:37 Dose: 40 mg Primidone (Mysoline) 50 mg PO BID [facility] Last Admin: 10/28/17 10:37 Dose: 50 mg Risperidone (Risperdal Tab) 1 mg PO HS [facility] PRN Reason: Protocol Last Admin: 10/27/17 22:07 Dose: 1 mg - Labs Labs: 10/28/17 06:00 10/28/17 06:00 - Constitutional Appears: Well, Non-toxic, No Acute Distress - Extremities Exam Additional comments: LLE focused exam: VASC: DP/PT pulses are faintly palpable 1/4. CFT < 3 sec to all digits. Temp gradient warm to cool from proximal to distal. No pitting or non-pitting edema noted DERM: Deep tissue injury/superficial hematoma noted on the plantar aspect of the left heel. No open lesions, no erythema, no clinical suspicion of active infection NEURO: unable to obtain due to patient mental status ORTHO: Patient is in contracted position in bed - mild pain on ROM of the LE; no pain on palpation of the plantar heel - Neurological Exam Neurological Exam: Alert, Awake - Psychiatric Exam Psychiatric exam: Normal Affect, Normal Mood Assessment and Plan - Assessment and Plan (Free Text) Assessment: 82 year old male evaluated at bedside for left heel deep tissue injury Plan: Patient seen and evaluated at bedside with attending Dr. Abrams Labs, vitals, charts reviewed, WBC 11.0 No source of infection /no open lesion from bilateral LE - plantar heel deep tissue injury appears stable X rays of left foot reveal no evidence of OM Dressing applied using bactroban, optifoam Multipodus boots to be worn in bed at all times Will continue to follow patient while in-house <Yoel Abrams - Last Filed: 10/28/17 16:03> Objective - Vital Signs/Intake and Output Vital Signs (last 24 hours): Temp Pulse Resp BP Pulse Ox 99.7 F H 83 20 125/69 98 10/28/17 08:19 10/28/17 10:36 10/28/17 08:19 10/28/17 10:36 10/28/17 08:19 Intake and Output: 10/28/17 10/28/17 06:59 18:59 Intake Total 840 Output Total 250 1425 Balance -250 -585 - Medications Medications: Current Medications Acetaminophen (Tylenol 650 Mg Supp) 650 mg RC Q6H PRN PRN Reason: Fever >100.4 F Last Admin: 10/25/17 15:40 Dose: 650 mg Amlodipine Besylate (Norvasc) 5 mg PO DAILY [facility] Last Admin: 10/28/17 10:36 Dose: 5 mg Donepezil HCl (Aricept) 10 mg PO HS [facility] Last Admin: 10/27/17 22:07 Dose: 10 mg Meropenem (Merrem Iv 1 Gm Premix) 50 mls @ 100 mls/hr IVPB Q8 [facility] PRN Reason: Protocol Last Admin: 10/28/17 06:01 Dose: 100 mls/hr Lisinopril (Zestril) 40 mg PO DAILY [facility] Last Admin: 10/28/17 10:38 Dose: 40 mg Mupirocin (Bactroban Ointment) 0 gm TOP BID [facility] Last Admin: 10/28/17 13:45 Dose: 1 applic Pantoprazole Sodium (Protonix Ec Tab) 40 mg PO DAILY [facility] Last Admin: 10/28/17 10:37 Dose: 40 mg Primidone (Mysoline) 50 mg PO BID [facility] Last Admin: 10/28/17 10:37 Dose: 50 mg Risperidone (Risperdal Tab) 1 mg PO HS [facility] PRN Reason: Protocol Last Admin: 10/27/17 22:07 Dose: 1 mg - Labs Labs: 10/28/17 06:00 10/28/17 06:00 Attending/Attestation - Attestation I have personally seen and examined this patient.: Yes I have fully participated in the care of the patient.: Yes I have reviewed all pertinent clinical information, including history, physical exam and plan: Yes
--- NOTE | 2017-10-28 14:39 | CP.PCM.PN ---
Subjective - Date & Time of Evaluation Date of Evaluation: 10/28/17 Time of Evaluation: 10:30 - Subjective Subjective: No fevers, not in distress, more awake today, no diarrhea. Objective - Vital Signs/Intake and Output Vital Signs (last 24 hours): Temp Pulse Resp BP Pulse Ox 99.7 F H 83 20 125/69 98 10/28/17 08:19 10/28/17 08:19 10/28/17 08:19 10/28/17 08:19 10/28/17 08:19 Intake and Output: 10/28/17 10/28/17 06:59 18:59 Intake Total 0 Output Total 250 325 Balance -250 -325 - Medications Medications: Current Medications Acetaminophen (Tylenol 650 Mg Supp) 650 mg RC Q6H PRN PRN Reason: Fever >100.4 F Last Admin: 10/25/17 15:40 Dose: 650 mg Amlodipine Besylate (Norvasc) 5 mg PO DAILY [facility] Last Admin: 10/27/17 09:05 Dose: 5 mg Donepezil HCl (Aricept) 10 mg PO HS [facility] Last Admin: 10/27/17 22:07 Dose: 10 mg Meropenem (Merrem Iv 1 Gm Premix) 50 mls @ 100 mls/hr IVPB Q8 [facility] PRN Reason: Protocol Last Admin: 10/28/17 06:01 Dose: 100 mls/hr Lisinopril (Zestril) 40 mg PO DAILY [facility] Last Admin: 10/27/17 09:05 Dose: 40 mg Mupirocin (Bactroban Ointment) 0 gm TOP BID [facility] Last Admin: 10/27/17 17:32 Dose: 1 applic Pantoprazole Sodium (Protonix Ec Tab) 40 mg PO DAILY [facility] Last Admin: 10/27/17 09:05 Dose: 40 mg Primidone (Mysoline) 50 mg PO BID [facility] Last Admin: 10/27/17 17:35 Dose: 50 mg Risperidone (Risperdal Tab) 1 mg PO HS [facility] PRN Reason: Protocol Last Admin: 10/27/17 22:07 Dose: 1 mg - Labs Labs: 10/28/17 06:00 10/28/17 06:00 - Constitutional Appears: Chronically Ill - Head Exam Head Exam: NORMAL INSPECTION - ENT Exam ENT Exam: Mucous Membranes Moist - Neck Exam Neck Exam: absent: Meningismus - Respiratory Exam Respiratory Exam: Decreased Breath Sounds - Cardiovascular Exam Cardiovascular Exam: +S1, +S2 - GI/Abdominal Exam GI & Abdominal Exam: Soft. absent: Tenderness Assessment and Plan - Assessment and Plan (Free Text) Plan: Assessment sepsis due to Proteus bacteremia, R/O sacral area skin and skin structure infection R/O osteomyelitis dementia and bedbound history of frontal lobe meningioma chronic ulcers on the sacral and inner thigh areas HTN S/P right knee surgery Plan continue Merrem; repeat blood cx are negative; CT A/P does not show acute pathology ; urine cultures show contamination follow up 2D echo results follow up bone scan to rule out sacral osteomyelitis will continue to follow clinically overall prognosis is poor
--- NOTE | 2017-10-28 14:48 | CP.PCM.PN ---
Subjective - Date & Time of Evaluation Date of Evaluation: 10/28/17 Time of Evaluation: 09:30 - Subjective Subjective: The above named patient will require a hospital bed for home, he was admitted to hospital with sepsis due to infected sacral decubitus . He is bedbound, with dementia, has chronic ulcers on the sacrum and inner thighs. He will require a hospital at home for these reasons. Objective - Vital Signs/Intake and Output Vital Signs (last 24 hours): Temp Pulse Resp BP Pulse Ox 99.7 F H 83 20 125/69 98 10/28/17 08:19 10/28/17 10:36 10/28/17 08:19 10/28/17 10:36 10/28/17 08:19 Intake and Output: 10/28/17 10/28/17 06:59 18:59 Intake Total 840 Output Total 250 1425 Balance -250 -585 - Medications Medications: Current Medications Acetaminophen (Tylenol 650 Mg Supp) 650 mg RC Q6H PRN PRN Reason: Fever >100.4 F Last Admin: 10/25/17 15:40 Dose: 650 mg Amlodipine Besylate (Norvasc) 5 mg PO DAILY [facility] Last Admin: 10/28/17 10:36 Dose: 5 mg Donepezil HCl (Aricept) 10 mg PO HS [facility] Last Admin: 10/27/17 22:07 Dose: 10 mg Meropenem (Merrem Iv 1 Gm Premix) 50 mls @ 100 mls/hr IVPB Q8 [facility] PRN Reason: Protocol Last Admin: 10/28/17 06:01 Dose: 100 mls/hr Lisinopril (Zestril) 40 mg PO DAILY [facility] Last Admin: 10/28/17 10:38 Dose: 40 mg Mupirocin (Bactroban Ointment) 0 gm TOP BID [facility] Last Admin: 10/28/17 13:45 Dose: 1 applic Pantoprazole Sodium (Protonix Ec Tab) 40 mg PO DAILY [facility] Last Admin: 10/28/17 10:37 Dose: 40 mg Primidone (Mysoline) 50 mg PO BID [facility] Last Admin: 10/28/17 10:37 Dose: 50 mg Risperidone (Risperdal Tab) 1 mg PO HS [facility] PRN Reason: Protocol Last Admin: 10/27/17 22:07 Dose: 1 mg - Labs Labs: 10/28/17 06:00 10/28/17 06:00
--- NOTE | 2017-10-28 17:41 | NM ---
PROCEDURE: Three-phase bone scan HISTORY: assess for osteomyelitis COMPARISON: 10/24/2017 left foot radiographs TECHNIQUE: Following administration of 26.2 miCu of Tc MDP multiplanar whole body images were obtained. FINDINGS: Flow component: Increased flow to the left foot and in particular left calcaneus. Blood pool component: Accumulation of radionuclide left calcaneus. Delayed images at 3:00: Retention of radionuclide left calcaneus. Other findings: Foci of increased uptake in both ankles suggestive of degenerative/posttraumatic change. Increased uptake in 1st metatarsal phalangeal joints bilaterally consistent with hallux valgus deformity/repair IMPRESSION: Positive 3 phase bone scan for acute osseous process left calcaneus. Additional benign and/or incidental findings described above.
[2017-10-29] MEDS: Meropenem IV 1 gm in NS 50 ML IVPB SCH ×2 (05:58→15:02)
[2017-10-29 06:35] LABS: HEMOGLOBIN 8.5 g/dL (14.0-18.0); MEAN CELL VOLUME 80.5 fl (80.0-105.0); MEAN CORPUSCULAR HEMOGLOBIN 26.3 pg (25.0-35.0); MEAN CORPUSCULAR HGB CONC 32.7 g/dl (31.0-37.0); RBC 3.23 10^6/uL (3.5-6.1); RED CELL DISTRIBUTION WIDTH 18.3 % (11.5-14.5); WHITE BLOOD COUNT 13.3 10^3/ul (4.5-11.0)
[2017-10-29 07:02] LABS: ALB/GLOB RATIO 0.7 (1.1-1.8); ALBUMIN 2.5 g/dL (3.0-4.8); ALT/SGPT 107 U/L (7-56); AST/SGOT 93 U/L (17-59); BLOOD UREA NITROGEN 11 mg/dL (7-21); CALCIUM 8.8 mg/dL (8.4-10.5); GFR AFRICAN-AMERICAN > 60; GFR NON-AFRICAN AMERICAN > 60
[2017-10-29] MEDS: Pantoprazole 40 mg EC Tab PO SCH (10:06)
--- NOTE | 2017-10-29 11:11 | CP.PCM.PN ---
Subjective - Date & Time of Evaluation Date of Evaluation: 10/29/17 Time of Evaluation: 11:07 - Subjective Subjective: 82 y/o male seen at bedside with attending Dr. Rodrigeuz for left heel eschar with deep tissue injury. Pt awake and alert but unresponsive to questions. Expresses pain when the legs are moved. Per chart review, (-) F/C/N/V. Objective - Vital Signs/Intake and Output Vital Signs (last 24 hours): Temp Pulse Resp BP Pulse Ox 98.9 F 86 20 111/66 97 10/29/17 07:46 10/29/17 10:05 10/29/17 07:46 10/29/17 10:05 10/29/17 07:46 Intake and Output: 10/29/17 10/29/17 06:59 18:59 Intake Total 0 Output Total 1999 Balance -1999 - Medications Medications: Current Medications Acetaminophen (Tylenol 650 Mg Supp) 650 mg RC Q6H PRN PRN Reason: Fever >100.4 F Last Admin: 10/25/17 15:40 Dose: 650 mg Amlodipine Besylate (Norvasc) 5 mg PO DAILY [facility] Last Admin: 10/29/17 10:05 Dose: 5 mg Donepezil HCl (Aricept) 10 mg PO HS [facility] Last Admin: 10/28/17 21:31 Dose: 10 mg Meropenem (Merrem Iv 1 Gm Premix) 50 mls @ 100 mls/hr IVPB Q8 [facility] PRN Reason: Protocol Last Admin: 10/29/17 05:58 Dose: 100 mls/hr Lisinopril (Zestril) 40 mg PO DAILY [facility] Last Admin: 10/29/17 10:07 Dose: 40 mg Mupirocin (Bactroban Ointment) 0 gm TOP BID [facility] Last Admin: 10/29/17 10:32 Dose: 1 applic Pantoprazole Sodium (Protonix Ec Tab) 40 mg PO DAILY [facility] Last Admin: 10/29/17 10:06 Dose: 40 mg Primidone (Mysoline) 50 mg PO BID [facility] Last Admin: 10/29/17 10:05 Dose: 50 mg Risperidone (Risperdal Tab) 1 mg PO HS [facility] PRN Reason: Protocol Last Admin: 10/28/17 21:31 Dose: 1 mg - Labs Labs: 10/29/17 06:15 10/29/17 06:15 - Constitutional Appears: Well, Non-toxic, No Acute Distress - Extremities Exam Additional comments: LLE focused exam: VASC: DP/PT pulses are faintly palpable 1/4. CFT < 3 sec to all digits. Temp gradient warm to cool from proximal to distal. No pitting or non-pitting edema noted DERM: Deep tissue injury/superficial hematoma noted on the plantar aspect of the left heel with eschar formation noted to plantar lateral heel. No open lesions, no erythema, no clinical suspicion of active infection NEURO: unable to obtain due to patient mental status ORTHO: Patient is in contracted position in bed - mild pain on ROM of the LE; no pain on palpation of the plantar heel - Neurological Exam Neurological Exam: Alert, Awake - Psychiatric Exam Psychiatric exam: Normal Affect, Normal Mood Assessment and Plan - Assessment and Plan (Free Text) Assessment: 82 year old male evaluated at bedside for left heel deep tissue injury with eschar formation, cannot r/o underlying osteomyelitis Plan: Plan: Pt seen and evaluated with attending Dr. Rodriguez Labs and vitals reviewed- afebrile, WBC 13.3 Wound cleansed and dressed with Optifoam bandage Multipodus boots to remain on at all times in bed Nuclear bone scan shows 3 phase uptake at L calcaneus Left heel DTI exhibits no breaks in skin or soft tissue, however cannot r/o as source of infection as it is unclear the depth of the injury/if there is underlying osteomyelitis due to bone scan uptake Per ID, pt to receive 2 weeks of IV Meropenem for (+) sacral and blood cx Pt to be discharged to [facility] where he will receive abx therapy Pt is to return to wound care center on November [address] Rodriguez for F/U management of left heel DTI
--- NOTE | 2017-10-29 14:10 | PN ---
DATE: 10/29/2017 An 82-year-old black male with dementia, admitted to the hospital with sepsis. Positive blood cultures showing Proteus mirabilis. Wound cultures also, heel decubiti. Recent blood cultures were negative. Wound culture showing growing Enterobacter cloacae, Proteus mirabilis. Urine culture is growing multiple species. Blood cultures initially showing Proteus mirabilis. The patient is on IV antibiotic Infectious Disease. He is improving slowly. His swallowing is improved. He also was transfused 1 unit of blood. White count is still 13,300, hemoglobin is 8.5. Kidney function is stable. The patient is tolerating his diet well. His swallowing is improved. Does have some elevated liver enzymes and hypoalbuminemia. B12 was normal. The patient is more awake and alert, but he still has profound dementia and difficulty in speaking and difficulty in profound memory loss and disorientation. Plan is to continue IV antibiotics, possible transfer to [facility] or detention and follow the patient as an outpatient. Kenny Joseph MD
--- NOTE | 2017-10-29 17:02 | CP.PCM.PN ---
Subjective - Date & Time of Evaluation Date of Evaluation: 10/29/17 Time of Evaluation: 09:00 - Subjective Subjective: Comfortable in bed, no diarrhea, no fevers. Objective - Vital Signs/Intake and Output Vital Signs (last 24 hours): Temp Pulse Resp BP Pulse Ox 98.9 F 86 20 111/66 97 10/29/17 07:46 10/29/17 07:46 10/29/17 07:46 10/29/17 07:46 10/29/17 07:46 Intake and Output: 10/29/17 10/29/17 06:59 18:59 Intake Total 0 Output Total 1999 Balance -1999 - Medications Medications: Current Medications Acetaminophen (Tylenol 650 Mg Supp) 650 mg RC Q6H PRN PRN Reason: Fever >100.4 F Last Admin: 10/25/17 15:40 Dose: 650 mg Amlodipine Besylate (Norvasc) 5 mg PO DAILY [facility] Last Admin: 10/28/17 10:36 Dose: 5 mg Donepezil HCl (Aricept) 10 mg PO [facility] Last Admin: 10/28/17 21:31 Dose: 10 mg Meropenem (Merrem Iv 1 Gm Premix) 50 mls @ 100 mls/hr IVPB Q8 [facility] PRN Reason: Protocol Last Admin: 10/29/17 05:58 Dose: 100 mls/hr Lisinopril (Zestril) 40 mg PO DAILY [facility] Last Admin: 10/28/17 10:38 Dose: 40 mg Mupirocin (Bactroban Ointment) 0 gm TOP BID [facility] Last Admin: 10/28/17 17:59 Dose: 1 applic Pantoprazole Sodium (Protonix Ec Tab) 40 mg PO DAILY [facility] Last Admin: 10/28/17 10:37 Dose: 40 mg Primidone (Mysoline) 50 mg PO BID [facility] Last Admin: 10/28/17 18:04 Dose: 50 mg Risperidone (Risperdal Tab) 1 mg PO HS [facility] PRN Reason: Protocol Last Admin: 10/28/17 21:31 Dose: 1 mg - Labs Labs: 10/29/17 06:15 10/29/17 06:15 - Constitutional Appears: Chronically Ill - Head Exam Head Exam: NORMAL INSPECTION - Neck Exam Neck Exam: absent: Meningismus - Respiratory Exam Respiratory Exam: Decreased Breath Sounds - Cardiovascular Exam Cardiovascular Exam: +S1, +S2 - GI/Abdominal Exam GI & Abdominal Exam: Soft. absent: Tenderness Assessment and Plan - Assessment and Plan (Free Text) Plan: Assessment sepsis due to Proteus bacteremia, R/O sacral area skin and skin structure infection with no evidence of osteomyelitis on bone scan right heel deep tissue injury R/O osteomyelitis history of frontal lobe meningioma chronic ulcers on the sacral and inner thigh areas HTN S/P right knee surgery Plan continue Merrem to complete 2 weeks of therapy; repeat blood cx are negative; CT A/P does not show acute pathology ; urine cultures show contamination reviewed bone scan with Dr. Rodriguez - unable to rule out osteomyelitis on the right heel area but may be more of pressure - patient to be followed at wound care center after 2 weeks of antibiotics to see if the patient needs further antibiotics at that time overall prognosis is poor
[2017-10-29 18:35] VITALS: BP 113/69; PULSE 101; RESP 19; TEMP 98.1; O2SAT 98
[2017-10-29] MEDS ORDERED: Meropenem IV 1 gm in NS 50 ML IVPB SCH (22:00)
== END 2017-10-29 20:13 | disposition home or self-care (01) | DRG 872 ==
LOC: ED 10:00 → ERH 12:08 → 3RNO 16:32
PROVIDERS: ADMIT Internal Medicine; ATTEND Internal Medicine
PROC: 05HY33Z Insertion of Infusion Device into Upper Vein, Percutaneous Approach (ICD-10-PCS; principal; 2017-10-24)
DX: A41.59 Other Gram-negative sepsis (principal); N39.0 Urinary tract infection, site not specified; D64.9 Anemia, unspecified; E88.09 Other disorders of plasma-protein metabolism, not elsewhere classified; G30.9 Alzheimer's disease, unspecified; F02.80 Dementia in other diseases classified elsewhere, unspecified severity, without behavioral disturbance, psychotic disturbance, mood disturbance, and anxiety; I10 Essential (primary) hypertension; L89.159 Pressure ulcer of sacral region, unspecified stage; L89.609 Pressure ulcer of unspecified heel, unspecified stage; L89.899 Pressure ulcer of other site, unspecified stage; M24.561 Contracture, right knee; M24.562 Contracture, left knee; R13.10 Dysphagia, unspecified; R62.7 Adult failure to thrive; Z74.01 Bed confinement status; Z86.011 Personal history of benign neoplasm of the brain